=== PATIENT | male | born 1945 | race Caucasian/White ===

== ENCOUNTER 2016-07-26 18:51 | Inpatient (IN) | payer BC, OTHER ==
[~2016-07-26] VITALS: Ht 170.2 cm; Wt 103.0 kg
[~2016-07-26 18:51] MED LIST: ASPCH81X PO; MULT-506 PO
[2016-07-26 20:17] LABS: BUN/CREATININE RATIO 13.2 (10-20); CALCIUM 8.9 mg/dl (8.5-10.1); CREATININE 1.1 mg/dl (0.60-1.40); POTASSIUM 3.8 mmol/L (3.5-5.1)
[2016-07-26 20:23] LABS: URINE APPEARANCE CLEAR (CLEAR); URINE BILIRUBIN NEG (NEG); URINE COLOR YELLOW; URINE NITRITE NEG (NEG); URINE SPECIFIC GRAVITY 1.025 (1.000-1.030); UROBILINOGEN NEG (NEG); ZZUR CULT IF INDIC CLEAN CATCH NO
[2016-07-26 20:29] LABS: MANUAL MICROSCOPIC REQUIRED? NO; REVIEW REQ? NO
[2016-07-26 20:29] LABS: HEMATOCRIT 40.5 % (42-52); MEAN CELL VOLUME 90.4 fL (80-100); MEAN CORPUSCULAR HEMOGLOBIN 31.9 pg (25-34); MEAN CORPUSCULAR HGB CONC 35.3 g/dl (32-36); MEAN PLATELET VOLUME 9.6 fL (7.4-10.4); PLATELET COUNT 202 K/uL (130-400); RED BLOOD COUNT 4.48 M/uL (4.7-6.1); WHITE BLOOD COUNT 2.52 K/uL (4.8-10.8)
[2016-07-26] MEDS ORDERED: OPTIRAY 320 IV PRN (20:30)
[2016-07-26 20:36] LABS: BASO ABS # 0.13 K/uL (0-0.2); BASOPHIL % 5.2 % (0-2); COMPLETE YES; DOHLE BODIES 2+; HYPOSEGMENTED POLYS 1+; LYMPH ABS # 0.39 K/uL (1.2-3.4); LYMPHOCYTE % 15.5 %; META ABS # 0.11 K/uL (0-0); METAMYELOCYTE % 4.3 %; NEUTROPHILS % 43.1 %; VARIANT LYM ABS # 0.33 K/uL; VARIANT LYMPHOCYTE % 12.9 %
[2016-07-26] MEDS ORDERED: PAIN MEDICATION PO (20:51)
--- NOTE | 2016-07-26 21:01 | DIAGNOSTIC IMAGING REPORT ---
CT pelvis PELVIS W/IV CONT ONLY (CT) CLINICAL HISTORY: Rectal pain pain TECHNIQUE: Transaxial acquisition. Multi axial reformatted images. COMPARISON STUDY: None FINDINGS: Nonspecific nonobstructive bowel pattern. Normal appendix. Subtle increase in density of the mid mesenteric considered nonspecific. Scattered colonic diverticuli with no evidence for diverticulitis. Bladder is midline. No significant pelvic or inguinal adenopathy. Small right perianal collection measuring 2.0 x 1.6 cm. This is at/or immediately adjacent to the angle verge. Remainder the study is unremarkable. Mild degenerative change of the osseous structures throughout. Thinning of the left lateral abdominal wall most likely on anatomic variation basis. IMPRESSION: 1. Small right perianal collection measuring 2.0 x 1.6 cm. 2. This is at intermediately proximal to the anal verge. 3. Remainder the pelvis shows no additional significant abnormality. Electronically signed by: Edil Green M.D. 07/26/2016 8:59 PM Dictated Date/Time: 07/26/2016 8:55 PM
[2016-07-26] MEDS ORDERED: VANCOMYCIN INJ 1,500 MG in SODIUM CHLORIDE 0.9% 500ML 500 ML IV STA (22:24)
[2016-07-26] MEDS ORDERED: PIPERACILLIN/TAZOBACTAM 4.5 GM/100ML D5W IV STA (22:25)
[2016-07-26] MEDS ORDERED: ONDANSETRON INJ 2 MG/ML 2 ML VIAL IV STA (22:28)
[2016-07-26] MEDS ORDERED: HYDROmorphone INJ 0.5 MG/0.5 ML SYR IV STA (22:28)
[2016-07-26] MEDS ORDERED: SODIUM CHLORIDE 0.9% 1000ML 1,000 ML IV STA (23:25)
[2016-07-26] MEDS ORDERED: HYDROmorphone INJ 1 MG/ML SYR IV PRN (23:30)
[2016-07-26] MEDS ORDERED: ACETAMINOPHEN 325 MG TAB PO PRN (23:45)
[2016-07-26] MEDS ORDERED: ONDANSETRON INJ 2 MG/ML 2 ML VIAL IV PRN (23:45)
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
[2016-07-27] VITALS (8 sets, daily range): BP systolic 97–148; BP diastolic 56–77; PULSE 74–111; TEMP 36.6–36.9; O2SAT 92–95; Ht 170.2 cm; Wt 103.0 kg
[2016-07-27] MEDS: D5W AND LACTATED RINGERS 1,000 ML IV SCH ×2 (01:16→08:22)
--- NOTE | 2016-07-27 02:32 | EMERGENCY ROOM VISIT NOTE ---
History Report prepared by Doreen: Isac Leong Under the Supervision of: Dr. Joe Topete M.D. First contact with patient: 19:05 Chief Complaint: RECTAL PAIN Stated Complaint: HEMORROID ISSUES Nursing Triage Summary: see triage note History of Present Illness The patient is a 71 year old male who presents to the Emergency Room with complaints of persistent rectal pain that started 3 days ago. The patient notes that he thinks he has hemorrhoids. He notes that the discomfort is worse on the right side. He has not had a bowel movement in 3 days. The patient recalls one episode of having a bowel movement and then noticing significant bleeding with wiping. He tried an ointment and suppository without any relief of his symptoms. Pt denies LOC, headache, fevers, chills, diaphoresis, visual changes, neck pain, chest pain, breathing difficulties, nausea, vomiting, abdominal pain , back pain, urinary symptoms, numbness, weakness, lymphadenopathy, rash, or other complaints. Source of History: patient Onset: 3 days ago Position: other (rectal) Timing: other (persistent) Associated Symptoms: + hematochezia (with wiping) Note: Other associated symptoms: constipation Review of Systems See HPI for pertinent positives and negatives. A total of ten systems were reviewed and were otherwise negative. Past Medical & Surgical Medical Problems: (1) Kidney stone (2) Perirectal abscess (3) Vision loss Surgical Problems: (1) H/O nephrolithotomy with removal of calculi Family History Cancer Heart disease Kidney stone Social History Smoking Status: Former Smoker Drug Use: none Marital Status: Housing Status: lives alone Occupation Status: retired Current/Historical Medications Miscellaneous Medications [Pain medication], Unknown Dose PO Allergies Coded Allergies: No Known Allergies (Verified , 07/26/16) Physical Exam Vital Signs Date Time Temp Pulse Resp B/P Pulse Ox O2 Delivery O2 Flow Rate FiO2 07/26/16 23:36 99 18 118/77 95 Room Air 07/26/16 23:12 101 07/26/16 22:12 98 18 151/93 98 Room Air 07/26/16 20:50 102 18 122/73 97 Room Air 07/26/16 19:50 105 07/26/16 19:00 36.8 117 18 149/72 96 Room Air Physical Exam GENERAL: Awake, alert, well-appearing, in no distress HENT: Normocephalic, atraumatic. Oropharynx unremarkable. EYES: Normal conjunctiva. Sclera non-icteric. NECK: Supple. No nuchal rigidity. FROM. No JVD. RESPIRATORY: Clear to auscultation. CARDIAC: Regular rate, normal rhythm. Extremities warm and well perfused. Pulses equal. ABDOMEN: Soft, non-distended. No tenderness to palpation. No rebound or guarding. No masses. RECTAL: Erythema and swelling. Tenderness to right perirectal area. There was moderate edema present. External hemorrhoids without active bleeding. MUSCULOSKELETAL: Chest examination reveals no tenderness. The back is symmetrical on inspection without obvious abnormality. There is no CVA tenderness to palpation. No joint edema. LOWER EXTREMITIES: Calves are equal size bilaterally and non-tender. No edema. No discoloration. NEURO: Normal sensorium. No sensory or motor deficits noted. SKIN: No rash or jaundice noted. Medical Decision & Procedures ER Provider Diagnostic Interpretation: Other radiology results as stated below per my review and radiologist interpretation CT pelvis PELVIS W/IV CONT ONLY (CT) CLINICAL HISTORY: Rectal pain pain TECHNIQUE: Transaxial acquisition. Multi axial reformatted images. COMPARISON STUDY: None FINDINGS: Nonspecific nonobstructive bowel pattern. Normal appendix. Subtle increase in density of the mid mesenteric considered nonspecific. Scattered colonic diverticuli with no evidence for diverticulitis. Bladder is midline. No significant pelvic or inguinal adenopathy. Small right perianal collection measuring 2.0 x 1.6 cm. This is at/or immediately adjacent to the angle verge. Remainder the study is unremarkable. Mild degenerative change of the osseous structures throughout. Thinning of the left lateral abdominal wall most likely on anatomic variation basis. IMPRESSION: 1. Small right perianal collection measuring 2.0 x 1.6 cm. 2. This is at intermediately proximal to the anal verge. 3. Remainder the pelvis shows no additional significant abnormality. Electronically signed by: Edil Green M.D. 07/26/2016 8:59 PM Dictated Date/Time: 07/26/2016 8:55 PM Laboratory Results 07/26/16 19:47 Red Blood Count 4.48, Mean Corpuscular Volume 90.4, Mean Corpuscular Hemoglobin 31.9, Mean Corpuscular Hemoglobin Concent 35.3, Mean Platelet Volume 9.6 07/26/16 19:47 Test 07/26/16 19:45 07/26/16 19:47 Urine Color YELLOW Urine Appearance CLEAR (CLEAR) Urine pH 5.0 (4.5-7.5) Urine Specific [place] 1.025 (1.000-1.030) Urine Protein NEG (NEG) Urine Glucose (UA) NEG (NEG) Urine Ketones 2+ (NEG) Urine Occult Blood 1+ (NEG) Urine Nitrite NEG (NEG) Urine Bilirubin NEG (NEG) Urine Urobilinogen NEG (NEG) Urine Leukocyte Esterase NEG (NEG) Urine WBC (Auto) 1-5 /hpf (0-5) Urine RBC (Auto) 0-4 /hpf (0-4) Urine Hyaline Casts (Auto) 1-5 /lpf (0-5) Urine Epithelial Cells (Auto) 10-20 /lpf (0-5) Urine Bacteria (Auto) NEG (NEG) White Blood Count 2.52 K/uL (4.8-10.8) Red Blood Count 4.48 M/uL (4.7-6.1) Hemoglobin 14.3 g/dL (14.0-18.0) Hematocrit 40.5 % (42-52) Mean Corpuscular Volume 90.4 fL (80-100) Mean Corpuscular Hemoglobin 31.9 pg (25-34) Mean Corpuscular Hemoglobin Concent 35.3 g/dl (32-36) Platelet Count 202 K/uL (130-400) Mean Platelet Volume 9.6 fL (7.4-10.4) RDW Standard Deviation 43.6 fL (36.4-46.3) RDW Coefficient of Variation 13.1 % (11.5-14.5) Neutrophils % (Manual) 43.1 % Lymphocytes % (Manual) 15.5 % Variant Lymphocytes % (manual) 12.9 % Monocytes % (Manual) 19.0 % Basophils % (Manual) 5.2 % (0-2) Metamyelocytes % 4.3 % Neutrophils # (Manual) 1.09 K/uL (1.4-6.5) Total Absolute Neutrophils 1.09 K/uL (1.4-6.5) Lymphocytes # (Manual) 0.39 K/uL (1.2-3.4) Absolute Variant Lymphocytes 0.33 K/uL Total Absolute Lymphocytes 0.72 K/uL (1.2-3.4) Monocytes # (Manual) 0.48 K/uL (0.11-0.59) Basophils # (Manual) 0.13 K/uL (0-0.2) Metamyelocytes # 0.11 K/uL (0-0) Hyposegmented Neutrophils 1+ Dohle Bodies 2+ Anion Gap 11.0 mmol/L (3-11) Est Creatinine Clear Calc Drug Dose 70.5 ml/min Estimated GFR () 77.9 Estimated GFR (Non- 67.2 BUN/Creatinine Ratio 13.2 (10-20) Calcium Level 8.9 mg/dl (8.5-10.1) Total Bilirubin 0.6 mg/dl (0.2-1) Direct Bilirubin 0.2 mg/dl (0-0.2) Aspartate Amino Transf (AST/SGOT) 19 U/L (15-37) Alanine Aminotransferase (ALT/SGPT) 24 U/L (12-78) Alkaline Phosphatase 73 U/L (45-117) Total Protein 7.6 gm/dl (6.4-8.2) Albumin 4.0 gm/dl (3.4-5.0) Lipase 97 U/L (73-393) Laboratory results reviewed by me Medications Administered Medications (Trade) Dose Ordered Sig/Arnav Route Start Time Stop Time Status Last Admin Dose Admin Vancomycin HCl/ Sodium Chloride (Vancomycin Inj/ Nss 500ml) 530 ml @ 200 mls/hr ONE STAT IV 07/26/16 22:24 07/27/16 01:02 DC 07/26/16 23:18 200 MLS/HR Piperacillin Sod/ Tazobactam Sod (Zosyn Iv) 4.5 gm NOW STAT IV 07/26/16 22:25 07/26/16 22:26 DC 07/26/16 22:36 4.5 GM Ondansetron HCl (Zofran Inj) 4 mg NOW STAT IV 07/26/16 22:28 07/26/16 22:30 DC 07/26/16 22:35 4 MG Hydromorphone HCl (Dilaudid Inj) 0.5 mg NOW STAT IV 07/26/16 22:28 07/26/16 22:30 DC 07/26/16 22:35 0.5 MG Hydromorphone HCl (Dilaudid Inj) 1 mg Q15M PRN IV 07/26/16 23:30 07/27/16 01:02 DC 07/26/16 23:36 1 MG ED Course 1946: The patient was evaluated in room C5. A complete history and physical exam was performed. 2030: Ordered Ioversol 100 ml IV/interaction checking. 2220: At this time, I discussed the patient's case with Dr. Molina - General Surgery [facility] and he recommended IV Antibiotics. 2224: ORdered Vancomycin HCl 1500 mg/ NSS 530 ml @ 200 mls/hr IV. 2225: Ordered Zosyn Iv 2.5 gm IV. 2228: Ordered Dilaudid Inj 0.5 mg IV, Zofran Inj 4 mg IV. 2233: At this time, I discussed the patient's case with Dr. Vincent - Hospitalist [facility] and he agreed to accept the patient for further evaluation. 2325: Ordered NSS 1000 ml @ 125 mls/hr IV. 2330: Ordered Dilaudid Inj 1 mg IV/pain. Medical Decision Triage Nursing notes reviewed. The patient's presentation and history were concerning for rectal pain and bleeding. Etiologies such as fissure, hemorrhoids, rectal abscess, perirectal abscess, diverticulosis, AVM, coagulopathy, colitis, inflammatory bowel disease, malignancy,Danielle-Wayne tear, esophagitis, peptic ulcer disease, variceal bleed , gastritis, as well as others were entertained. The patient was evaluated. On examination he had significant induration and swelling in the right rashad-anal area and right gluteal cleft. He had a benign abdomen. The patient had blood work obtained. His CBC revealed a mild leukopenia and mild neutropenia. Chem panel was unremarkable. The patient underwent CT imaging and this was concerning for perianal/rectal abscess. The patient was hydrated. He was given IV Zofran and Dilaudid for pain control. Consultation was made with general surgery who recommended IV antibiotics and medical admission. He received IV vancomycin and IV Zosyn. Consultation was made with internal medicine. The patient was evaluated in the Emergency Room for further management. The chart was completed utilizing [employer] voice recognition software. Grammatical errors, random word insertions, pronoun errors, and incomplete sentences are an occasional consequence of this system due to software limitations, ambient noise, and hardware issues. Any formal questions or concerns about the content, text, or information contained within the body of this dictation should be directly addressed to the physician for clarification. Consults Time Called: 2214 Consulting Physician: Dr. Molina - General Surgery [place] Returned Call: [phone] At this time, I discussed the patient's case with Dr. Molina and he recommended IV Antibiotics. Additional Consults: Time Called: 2226 Consulted Physician: Dr. Vincent - Hospitalist [facility] Returned Call: [phone] Additional Comments: At this time, I discussed the patient's case with Dr. Vincent and he agreed to accept the patient for further evaluation. Impression Primary Impression: Perirectal abscess Additional Impression: Neutropenia Scribe Attestation The scribe's documentation has been prepared under my direction and personally reviewed by me in its entirety. I confirm that the note above accurately reflects all work, treatment, procedures, and medical decision making performed by me. Departure Information Dispostion Being Evaluated By Hospitalist Philip Hou MD (PCP) Problem Qualifiers
[2016-07-27] MEDS ORDERED: CEFAZOLIN IV 2,000 MG/60 ML D5W IV SCH (06:00)
[2016-07-27] MEDS ORDERED: VANCOMYCIN CONSULT ACTIVE PRN (08:30)
[2016-07-27] MEDS ORDERED: PIPERACILL/TAZOBAC CONSULT ACTIVE PRN (08:30)
[2016-07-27] MEDS ORDERED: VANCOMYCIN INJ 1,500 MG in SODIUM CHLORIDE 0.9% 500ML 500 ML IV SCH (09:00)
[2016-07-27] MEDS: PIPERACILL/TAZOBAC IV 4.5 GM in DEXTROSE 5% 100ML 100 ML IV SCH ×2 (09:01→15:37)
[2016-07-27] MEDS ORDERED: BISACODYL 10 MG SUPP ONE (09:46)
--- NOTE | 2016-07-27 10:00 | Pharmacy Progress Note ---
Pharmacy Antibiotic Consult Date of Service: Jul 27, 2016. Pharmacy Dosing Scope Pharmacy is consulted to initiate Vancomycin and Zosyn IV dosing therapy, order appropriate labs and adjust drug dose/frequency. Subjective The patient is a 71 year old male admitted on Jul 26, 2016 at 23:41 admitted for perirectal abscess. He has hx of lymphoma on chemotherapy (last about a month ago). Dr. Vincent consulted pharmacy for broad spectrum antibiotic coverage consisting of Vancomycin and Zosyn. Objective Height (Feet): 5 Height (Inches): 7.00 Weight (Kilograms): 103.000 Lab Results (24hrs): Laboratory Tests Test 07/26/16 19:47 07/27/16 08:55 BUN/Creatinine Ratio 13.2 Blood Urea Nitrogen 15 mg/dl Creatinine 1.10 mg/dl 1.00 mg/dl White Blood Count 2.52 K/uL Red Blood Count 4.48 M/uL Hemoglobin 14.3 g/dL Hematocrit 40.5 % Mean Corpuscular Volume 90.4 fL Mean Corpuscular Hemoglobin 31.9 pg Mean Corpuscular Hemoglobin Concent 35.3 g/dl Platelet Count 202 K/uL Mean Platelet Volume 9.6 fL Recent Pertinent Medications Initial doses of both Vancomycin and Zosyn in E.D Item Value Date Time Piperacillin Sod/ 120 ml @ 30 mls/hr 07/27/16 0845 Tazobactam Sod Q8@0000,0800,1600/IV 07/27/16 0901 4.5 gm/Dextrose Assessment & Plan Loading dose: Vancomycin 1500mg (~15mg/kg) IV X 1 dose then I gave patient another 1500mg dose around 0900. Going forward I will give patient Vancomycin 1350mg (~13mg/kg) every 12 hours. Given his bariatric stature I would predict him to accumulate the Vancomycin. I estimated patients half life at around 10 hours. I will check a trough level prior to 1000 dose on 07/29/16. Goal trough level estimate: between 15-20 mcg/mL. Pharmacy will continue to follow and will adjust dose/frequency as necessary. Thank you
--- NOTE | 2016-07-27 10:12 | History and Physical ---
History & Physical Date & Time of Service: Jul 27, 2016 at 10:02 Chief Complaint: Perirectal Abscess Primary Care Physician: Philip Chahal MD History of Present Illness Source: patient, family 71 YO male followed by Dr. Chahal for Internal Medicine and Dr. Hernandez for Hematology / Oncology. History of lymphoma. Last chemo about a month ago. Presented to ED with severe rectal pain. Symptoms started about 10 days ago and have progressively worsened. Pain worse when sitting. No significant worsening with bowel movements. Minimal amount of blood on toilet paper. No associated fever, nausea, vomiting. Tried oxycodone without benefit. now pt is still have rectal pain, pt denies fever, last BM 5 days ago. . 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 Surgical Problems: (1) H/O nephrolithotomy with removal of calculi Status: Resolved Family History Cancer Heart disease Kidney stone Social History Smoking Status: Former Smoker Alcohol Use: occasionally Drug Use: none Marital Status: Housing status: lives alone Occupational Status: retired Multi-Drug Resistant Organisms History of MDRO: No Allergies Coded Allergies: No Known Allergies (Verified , 07/26/16) Home Medications Miscellaneous Medications [Pain medication], Unknown Dose PO Review of Systems Constitutional: No chills, No fatigue, No fever, No problem reported, No sweats , No weakness, No weight loss Eyes: No diplopia, No discharge, No eye pain, No problem reported, No redness, No worsening of vision ENT: No dental problems, No hearing loss, No nasal symptoms, No problem reported, No sore throat, No tinnitus, No trouble swallowing, No unusual epistaxis Respiratory: No cough, No dyspnea at rest, No dyspnea on exertion, No hemoptysis, No problem reported, No shortness of breath, No sputum, No wheezing Cardiovascular: No PND, No chest pain, No claudication, No edema, No orthopnea , No palpitations, No problem reported Abdomen: No GI bleeding, No constipation, No diarrhea, No nausea, No pain, No problem reported, No vomiting Genitourinary - Male: No dysuria, No hematuria, No impotence, No lesions, No penile discharge, No problem reported, No urinary frequency, No urinary hesitancy, No urinary incontinence, No urinary retention, No urinary urgency Neurologic: No balance problems, No memory loss, No numbness/tingling, No paralysis, No problem reported, No vertigo, No weakness Endocrine: No excessive thirst, No excessive urination, No fatigue, No problem reported Hematologic / Lymphatic: + swollen lymph nodes Physical Exam Vital Signs Date Time Temp Pulse Resp B/P Pulse Ox O2 Delivery O2 Flow Rate FiO2 07/27/16 07:45 Room Air 07/27/16 07:31 36.7 106 18 97/64 92 Room Air 07/27/16 01:20 104 07/27/16 00:45 Room Air 07/27/16 00:45 36.8 111 18 127/75 92 Room Air 07/26/16 23:36 99 18 118/77 95 Room Air 07/26/16 23:12 101 07/26/16 22:12 98 18 151/93 98 Room Air 07/26/16 20:50 102 18 122/73 97 Room Air 07/26/16 19:50 105 07/26/16 19:00 36.8 117 18 149/72 96 Room Air General Appearance: WD/WN, no apparent distress Head: normocephalic, atraumatic Eyes: EOMI, sclerae normal, + pertinent finding (s/p surgical changes right iris) ENT: hearing grossly normal, pharynx normal Neck: supple, no adenopathy, thyroid normal, no JVD, trachea midline Respiratory/Chest: lungs clear, no respiratory distress, no accessory muscle use Cardiovascular: regular rate, rhythm, no edema, no gallop, no JVD, no murmur Abdomen/GI: normal bowel sounds, non tender, soft, no organomegaly, + pertinent finding (hemorrhoids; right perirectal tenderness) Extremities/Musculoskelatal: normal inspection, no calf tenderness Neurologic/Psych: spider assembler II-XII nml as tested, no motor/sensory deficits (grossly intact), alert, normal mood/affect, oriented x 3 Skin: normal color, warm/dry Lymphatic: no adenopathy rectal exam- right perirectal abscess, size 3x3cm, redness, tenderness, external hemorrhoid, some small drainage, pus, possible fistula, Diagnostics Laboratory Results Results Past 24 Hours Test 07/26/16 19:45 07/26/16 19:47 07/27/16 08:55 Range/Units Urine Color YELLOW Urine Appearance CLEAR CLEAR Urine pH 5.0 4.5-7.5 Urine Specific [place] 1.025 1.000-1.030 Urine Protein NEG NEG Urine Glucose (UA) NEG NEG Urine Ketones 2+ NEG Urine Occult Blood 1+ NEG Urine Nitrite NEG NEG Urine Bilirubin NEG NEG Urine Urobilinogen NEG NEG Urine Leukocyte Esterase NEG NEG Urine WBC (Auto) 1-5 0-5 /hpf Urine RBC (Auto) 0-4 0-4 /hpf Urine Hyaline Casts (Auto) 1-5 0-5 /lpf Urine Epithelial Cells (Auto) 10-20 0-5 /lpf Urine Bacteria (Auto) NEG NEG White Blood Count 2.52 4.8-10.8 K/uL Red Blood Count 4.48 4.7-6.1 M/uL Hemoglobin 14.3 14.0-18.0 g/dL Hematocrit 40.5 42-52 % Mean Corpuscular Volume 90.4 80-100 fL Mean Corpuscular Hemoglobin 31.9 25-34 pg Mean Corpuscular Hemoglobin Concent 35.3 32-36 g/dl Platelet Count 202 130-400 K/uL Mean Platelet Volume 9.6 7.4-10.4 fL RDW Standard Deviation 43.6 36.4-46.3 fL RDW Coefficient of Variation 13.1 11.5-14.5 % Neutrophils % (Manual) 43.1 % Lymphocytes % (Manual) 15.5 % Variant Lymphocytes % (manual) 12.9 % Monocytes % (Manual) 19.0 % Basophils % (Manual) 5.2 0-2 % Metamyelocytes % 4.3 % Neutrophils # (Manual) 1.09 1.4-6.5 K/uL Total Absolute Neutrophils 1.09 1.4-6.5 K/uL Lymphocytes # (Manual) 0.39 1.2-3.4 K/uL Absolute Variant Lymphocytes 0.33 K/uL Total Absolute Lymphocytes 0.72 1.2-3.4 K/uL Monocytes # (Manual) 0.48 0.11-0.59 K/uL Basophils # (Manual) 0.13 0-0.2 K/uL Metamyelocytes # 0.11 0-0 K/uL Hyposegmented Neutrophils 1+ Dohle Bodies 2+ Sodium Level 139 136-145 mmol/L Potassium Level 3.8 3.5-5.1 mmol/L Chloride Level 103 98-107 mmol/L Carbon Dioxide Level 25 21-32 mmol/L Anion Gap 11.0 3-11 mmol/L Blood Urea Nitrogen 15 7-18 mg/dl Creatinine 1.10 1.00 0.60-1.40 mg/dl Est Creatinine Clear Calc Drug Dose 70.5 77.5 ml/min Estimated GFR () 77.9 87.4 Estimated GFR (Non- 67.2 75.4 BUN/Creatinine Ratio 13.2 10-20 Random Glucose 99 70-99 mg/dl Calcium Level 8.9 8.5-10.1 mg/dl Total Bilirubin 0.6 0.2-1 mg/dl Direct Bilirubin 0.2 0-0.2 mg/dl Aspartate Amino Transf (AST/SGOT) 19 15-37 U/L Alanine Aminotransferase (ALT/SGPT) 24 12-78 U/L Alkaline Phosphatase 73 45-117 U/L Total Protein 7.6 6.4-8.2 gm/dl Albumin 4.0 3.4-5.0 gm/dl Lipase 97 73-393 U/L Diagnostic Radiology CT scan-IMPRESSION: 1. Small right perianal collection measuring 2.0 x 1.6 cm. 2. This is at intermediately proximal to the anal verge. 3. Remainder the pelvis shows no additional significant abnormality. Impression Assessment and Plan IMP: perirectal abscess Plan: I recommend to do I/D perirectal abscess D/W benefits, risks and alternatives of the procedure, the risks- infection, bleeding, sepsis, fistula, AK, DVT, urine retention, pt understood, he agrees with [facility] plan, I answered all questions, pre-op EKG ASA Classification: ASA Class II Level of Care Med/Surg Advanced Directives Existing Advance Directive: No Existing Living Will: No Existing Power of Vamp Wetter: No VTE Prophylaxis VTE Risk Assessment Done? Y/N: Yes Risk Level: Moderate Given or contraindicated: SCD's Note Total Time: Critical Care 30 - 74 minutes
[2016-07-27] MEDS ORDERED: PHENYLEPHRINE 100MCG/ML 5ML SYR IV PRN (10:15)
[2016-07-27] MEDS ORDERED: HYDROmorphone INJ 2 MG/ML SYR/VIAL IV PRN (10:15)
[2016-07-27] MEDS ORDERED: ATROPINE SULFATE 0.1 MG/ML 5ML SYR IV PRN (10:15)
[2016-07-27] MEDS ORDERED: FLUMAZENIL 0.1 MG/1 ML 10 ML VIAL IV PRN (10:15)
[2016-07-27] MEDS ORDERED: MEPERIDINE HCL 25 MG/ML CARP IV PRN (10:15)
[2016-07-27] MEDS ORDERED: FENTANYL CITRATE INJ 50 MCG/1 ML 2 ML VIAL IV PRN (10:15)
[2016-07-27] MEDS ORDERED: NALOXONE HCL 0.4 MG/1 ML VIAL/CARP IV PRN (10:15)
[2016-07-27] MEDS ORDERED: EpHEDrine SULFATE INJ 50 MG/ML AMP IV PRN (10:15)
[2016-07-27] MEDS ORDERED: ONDANSETRON INJ 2 MG/ML 2 ML VIAL IV PRN (10:15)
[2016-07-27] MEDS ORDERED: LABETALOL HCL IV 5 MG/ML 20ML IV PRN (10:15)
[2016-07-27] MEDS ORDERED: LIDOCAINE HCL 2% 2 ML VIAL (20MG/ML) ONE (10:30)
[2016-07-27] MEDS ORDERED: MIDAZOLAM HCL 1 MG/ML 2ML VIAL ONE ×2 (10:30→10:31)
[2016-07-27] MEDS ORDERED: PROPOFOL IV EMULSION 10 MG/ML 20 ML VIAL IV ONE (10:30)
[2016-07-27] MEDS ORDERED: FENTANYL CITRATE INJ 50 MCG/1 ML 2 ML VIAL ONE (10:30)
[2016-07-27] MEDS ORDERED: KETAMINE HCL INJ 50 MG/ML 10 ML VIAL ONE (10:31)
[2016-07-27] MEDS ORDERED: CEFAZOLIN SOD 1 GM VIAL ONE (11:17)
--- NOTE | 2016-07-27 11:50 | [facility] Post Operative Brief Note ---
Immediate Operative Summary Operative Date Jul 27, 2016. Pre-Operative Diagnosis perirectal abscess Post-Operative Diagnosis perirectal abscess and thrombotic external hemorrhoid Procedure(s) Performed I/D perirectal abscess and incision drainage thromobotic rxternal hemorrhoid Surgeon Curtis Owen Geometry Tutor Surgeon(s) surgical services director Estimated Blood Loss 5 ml Findings perirectal abscess and throbotic external hemorrhoid at 7-9 oclock Fluids (cc crystalloids) 300ml Specimens wound culture Drains pen-zarina Anesthesia sedation + local Complication(s) None Disposition Recovery Room / PACU
[2016-07-27] MEDS ORDERED: MIX: 0.5% BUPIVICAINE 20ML/1% LIDO 20ML INJ ONE (11:57)
[2016-07-27] MEDS ORDERED: BACITRACIN 500 UNIT TOP ONE (11:58)
--- NOTE | 2016-07-27 12:06 | Anesthesiology Progress Note ---
Anesthesia Post Op Note Date & Time Jul 27, 2016 at 12:07 Vital Signs Pain Intensity: 1 Vital Signs Past 12 Hours Date Time Temp Pulse Resp B/P Pulse Ox O2 Delivery O2 Flow Rate FiO2 07/27/16 11:55 36.1 77 16 116/73 95 Mask 07/27/16 11:45 73 16 115/69 99 Mask 10 07/27/16 11:37 36 76 16 114/72 99 Mask 10 07/27/16 07:45 Room Air 07/27/16 07:31 36.7 106 18 97/64 92 Room Air 07/27/16 01:20 104 07/27/16 00:45 Room Air 07/27/16 00:45 36.8 111 18 127/75 92 Room Air Notes Mental Status: alert / awake / arousable, participated in evaluation Pt Amnestic to Procedure: Yes Nausea / Vomiting: adequately controlled Pain: adequately controlled Airway Patency, RR, SpO2: stable & adequate BP & HR: stable & adequate Hydration State: stable & adequate Anesthetic Complications: no major complications apparent
--- NOTE | 2016-07-27 12:29 | OPERATIVE REPORT ---
DATE OF OPERATION: 07/27/2016 PREOPERATIVE DIAGNOSIS: Perirectal abscess. POSTOPERATIVE DIAGNOSIS: Perirectal abscess with thrombosed external hemorrhoid. PROCEDURE: I\T\D perirectal abscess and incision and drainage thrombosed external hemorrhoid. SURGEON: Dr. Curtis Freedman. ANESTHESIA: Conscious sedation plus local. FINDINGS: Perirectal abscess with thrombosed external hemorrhoid. COMPLICATIONS: None. ESTIMATED BLOOD LOSS: About 5 mL. IV FLUIDS: 300 mL. INDICATIONS FOR THE PROCEDURE: This is a 71-year-old gentleman who was admitted to hospital for 10 days history of rectal pain. The patient was diagnosed with perirectal abscess by the CT scan. Did history and physical exam and decided to do I\T\D of perirectal abscess. I did talk to the patient about the benefit and risk, alternate procedure. I indicated the risks may include but not limited such as bleeding, infection, sepsis, fistula, myocardial infarction, DVT, even . The patient understands. He signed informed consent and I answered all questions. DETAILS OF PROCEDURE: We brought the patient to the OR and put the patient in lithotomy position and the patient received 2 grams Ancef IV for prophylactic antibiotic. The patient received SCD on bilateral legs to prevent DVT. The patient received conscious sedation by anesthesiology. Then the patient's rectal area was properly prepped and draped in routine sterile fashion. After time out, I injected the local anesthesia by using 1% lidocaine mixed with 0.5% Marcaine around rectal area. Then I started to do the rectal exam and found the patient had abscess on the right side perirectal area. Tenderness and redness. Also the patient had thrombosed external hemorrhoid. I decided made the incision on the abscess. There was some pus coming out. We did send culture. Also, we made an opening on the thrombosed external hemorrhoid and found the patient has a blood clot inside the thrombosed hemorrhoid. I did remove all the blood clot and hemostasis obtained. Then we put a dressing on. Also, passed 1 Pa drain through to the incision in order to drain the incision better. Again, hemostasis obtained. Then we put the dressing on. The patient tolerated the procedure well. After procedure, I did talk to the patient's family member. They understand. The patient transferred to recovery room in stable condition. I attest to the content of the Intraoperative Record and any orders documented therein. Any exceptions are noted below. MTDD
[2016-07-27] MEDS: D5W AND 1/2NSS + 20MEQ KCL 1,000 ML IV SCH (13:08)
[2016-07-27] MEDS: HYDROmorphone INJ 1 MG/ML SYR IV PRN (15:42)
--- NOTE | 2016-07-27 17:47 | Progress Note ---
Internal Med Progress Note Date of Service: Jul 27, 2016. Provider Documentation: SUBJECTIVE: Patient is lying in his bed and recently came back after I & D. Intermittently increased pain. No other new change or complaint. OBJECTIVE: Vital Signs-as noted below Examination: General Appearance: WD/WN, In no apparent distress Head: normocephalic, atraumatic Eyes: EOMI, sclerae normal,s/p surgical changes right iris. ENT: hearing grossly normal, pharynx normal Neck: supple, no adenopathy, thyroid normal, no JVD, trachea midline Respiratory/Chest: lungs clear, no respiratory distress, no accessory muscle use Cardiovascular: regular rate, rhythm, no edema, no gallop, no JVD, no murmur Abdomen/GI: normal bowel sounds, non tender, soft, no organomegaly, Caitlin- rectal area is dressed. Extremities/Musculoskeletal: normal inspection, no calf tenderness Neurologic/Psych: no motor/sensory deficits (grossly intact), alert, normal mood/affect, oriented x 3 Skin: normal color, warm/dry Lymphatic: no adenopathy Lab data as noted below. ASSESSMENT & PLAN: Caitlin-rectal Abscess: Had I & D done earlier today. has been clinically stable. -Continue Vancomycin + Zosyn started in ED. -Thanks for input and I & D by general Surgery History Lymphoma: Stable. VTE Prophylaxis: SCD's. Ambulate. Code Status: FULL CODE. Disposition: Expected discharge to home in AM once is cleared by surgery. Internal Medicine follow-up with Dr. Chahal. Hematology / Medical Oncology follow-up with Dr. Hernandez. Vital Signs: Date Time Temp Pulse Resp B/P Pulse Ox O2 Delivery O2 Flow Rate FiO2 07/27/16 15:20 36.6 84 18 148/77 94 Room Air 07/27/16 15:20 94 Room Air 07/27/16 12:13 95 Room Air 07/27/16 12:10 36.7 74 16 117/56 95 Room Air 07/27/16 11:55 36.1 77 16 116/73 95 Mask 07/27/16 11:45 73 16 115/69 99 Mask 10 07/27/16 11:37 36 76 16 114/72 99 Mask 10 07/27/16 07:45 Room Air 07/27/16 07:31 36.7 106 18 97/64 92 Room Air 07/27/16 01:20 104 07/27/16 00:45 Room Air 07/27/16 00:45 36.8 111 18 127/75 92 Room Air 07/26/16 23:36 99 18 118/77 95 Room Air 07/26/16 23:12 101 07/26/16 22:12 98 18 151/93 98 Room Air 07/26/16 20:50 102 18 122/73 97 Room Air 07/26/16 19:50 105 07/26/16 19:00 36.8 117 18 149/72 96 Room Air Lab Results: Results Past 24 Hours Test 07/26/16 19:45 07/26/16 19:47 07/27/16 08:55 Range/Units Urine Color YELLOW Urine Appearance CLEAR CLEAR Urine pH 5.0 4.5-7.5 Urine Specific [place] 1.025 1.000-1.030 Urine Protein NEG NEG Urine Glucose (UA) NEG NEG Urine Ketones 2+ NEG Urine Occult Blood 1+ NEG Urine Nitrite NEG NEG Urine Bilirubin NEG NEG Urine Urobilinogen NEG NEG Urine Leukocyte Esterase NEG NEG Urine WBC (Auto) 1-5 0-5 /hpf Urine RBC (Auto) 0-4 0-4 /hpf Urine Hyaline Casts (Auto) 1-5 0-5 /lpf Urine Epithelial Cells (Auto) 10-20 0-5 /lpf Urine Bacteria (Auto) NEG NEG White Blood Count 2.52 4.8-10.8 K/uL Red Blood Count 4.48 4.7-6.1 M/uL Hemoglobin 14.3 14.0-18.0 g/dL Hematocrit 40.5 42-52 % Mean Corpuscular Volume 90.4 80-100 fL Mean Corpuscular Hemoglobin 31.9 25-34 pg Mean Corpuscular Hemoglobin Concent 35.3 32-36 g/dl Platelet Count 202 130-400 K/uL Mean Platelet Volume 9.6 7.4-10.4 fL RDW Standard Deviation 43.6 36.4-46.3 fL RDW Coefficient of Variation 13.1 11.5-14.5 % Neutrophils % (Manual) 43.1 % Lymphocytes % (Manual) 15.5 % Variant Lymphocytes % (manual) 12.9 % Monocytes % (Manual) 19.0 % Basophils % (Manual) 5.2 0-2 % Metamyelocytes % 4.3 % Neutrophils # (Manual) 1.09 1.4-6.5 K/uL Total Absolute Neutrophils 1.09 1.4-6.5 K/uL Lymphocytes # (Manual) 0.39 1.2-3.4 K/uL Absolute Variant Lymphocytes 0.33 K/uL Total Absolute Lymphocytes 0.72 1.2-3.4 K/uL Monocytes # (Manual) 0.48 0.11-0.59 K/uL Basophils # (Manual) 0.13 0-0.2 K/uL Metamyelocytes # 0.11 0-0 K/uL Hyposegmented Neutrophils 1+ Dohle Bodies 2+ Sodium Level 139 136-145 mmol/L Potassium Level 3.8 3.5-5.1 mmol/L Chloride Level 103 98-107 mmol/L Carbon Dioxide Level 25 21-32 mmol/L Anion Gap 11.0 3-11 mmol/L Blood Urea Nitrogen 15 7-18 mg/dl Creatinine 1.10 1.00 0.60-1.40 mg/dl Est Creatinine Clear Calc Drug Dose 70.5 77.5 ml/min Estimated GFR () 77.9 87.4 Estimated GFR (Non- 67.2 75.4 BUN/Creatinine Ratio 13.2 10-20 Random Glucose 99 70-99 mg/dl Calcium Level 8.9 8.5-10.1 mg/dl Total Bilirubin 0.6 0.2-1 mg/dl Direct Bilirubin 0.2 0-0.2 mg/dl Aspartate Amino Transf (AST/SGOT) 19 15-37 U/L Alanine Aminotransferase (ALT/SGPT) 24 12-78 U/L Alkaline Phosphatase 73 45-117 U/L Total Protein 7.6 6.4-8.2 gm/dl Albumin 4.0 3.4-5.0 gm/dl Lipase 97 73-393 U/L Microbiology Results 07/27/16 Gram Stain - Final, Resulted 07/27/16 Bacterial Culture, Resulted Pending
[2016-07-27] MEDS: DOCUSATE SODIUM 100 MG CAP PO SCH (21:05)
[2016-07-27] MEDS: VANCOMYCIN INJ 1,350 MG in SODIUM CHLORIDE 0.9% 250ML 250 ML IV SCH (21:46)
[2016-07-28] MEDS: PIPERACILL/TAZOBAC IV 4.5 GM in DEXTROSE 5% 100ML 100 ML IV SCH ×3 (00:45→16:56)
[2016-07-28 03:49] VITALS: BP 113/69; PULSE 75; TEMP 36.8; O2SAT 94
[2016-07-28 06:14] LABS: BUN/CREATININE RATIO 9.8 (10-20); CALCIUM 8.2 mg/dl (8.5-10.1); CREATININE 1.1 mg/dl (0.60-1.40); POTASSIUM 3.8 mmol/L (3.5-5.1)
[2016-07-28 06:18] LABS: BASO ABS # 0.05 K/uL (0-0.2); BASOPHIL % 2.6 % (0-2); COMPLETE YES; DOHLE BODIES 2+; EOSINOPHIL % 7.7 %; HEMATOCRIT 35.4 % (42-52); HYPOSEGMENTED POLYS 1+; LYMPH ABS # 0.36 K/uL (1.2-3.4); LYMPHOCYTE % 18.8 %; MEAN CELL VOLUME 91.2 fL (80-100); MEAN PLATELET VOLUME 9.3 fL (7.4-10.4); META ABS # 0.07 K/uL (0-0); METAMYELOCYTE % 3.4 %; MYELOCYTE % 2.6 %; NEUTROPHILS % 37.5 %; PLATELET COUNT 181 K/uL (130-400); RED BLOOD COUNT 3.88 M/uL (4.7-6.1); VARIANT LYMPHOCYTE % 10.3 %; WHITE BLOOD COUNT 1.93 K/uL (4.8-10.8)
[2016-07-28] MEDS: D5W AND 1/2NSS + 20MEQ KCL 1,000 ML IV SCH (07:38)
[2016-07-28] MEDS: HYDROmorphone INJ 1 MG/ML SYR IV PRN ×3 (07:46→21:14)
--- NOTE | 2016-07-28 08:11 | Anesthesiology Progress Note ---
Anesthesia Post Op Note Date & Time Jul 28, 2016 at 08:11 Vital Signs Vital Signs Past 12 Hours Date Time Temp Pulse Resp B/P Pulse Ox O2 Delivery O2 Flow Rate FiO2 07/28/16 03:49 36.8 75 16 113/69 94 Room Air 07/28/16 00:45 Room Air 07/27/16 23:14 36.9 77 16 109/69 94 Room Air Notes Mental Status: alert / awake / arousable, participated in evaluation Pt Amnestic to Procedure: Yes Nausea / Vomiting: adequately controlled Pain: adequately controlled Airway Patency, RR, SpO2: stable & adequate BP & HR: stable & adequate Hydration State: stable & adequate Anesthetic Complications: no major complications apparent
[2016-07-28 08:30] VITALS: BP 125/75; PULSE 75; TEMP 36.6; O2SAT 93
[2016-07-28] MEDS: DOCUSATE SODIUM 100 MG CAP PO SCH ×2 (10:18→21:11)
[2016-07-28] MEDS: VANCOMYCIN INJ 1,350 MG in SODIUM CHLORIDE 0.9% 250ML 250 ML IV SCH ×2 (12:04→21:11)
--- NOTE | 2016-07-28 12:08 | Surgery Progress Note ---
Surgery Progress Note Date of Service Jul 28, 2016. Subjective Post OP Day: 1 + feeling well F/U S/P I/D perirectal abscess. pt is doing much better, less pain, the wound is dry, no fever. passed BM, Objective Vital Signs: Date Time Temp Pulse Resp B/P Pulse Ox O2 Delivery O2 Flow Rate FiO2 07/28/16 08:30 36.6 75 18 125/75 93 Room Air 07/28/16 07:37 Room Air 07/28/16 03:49 36.8 75 16 113/69 94 Room Air 07/28/16 00:45 Room Air 07/27/16 23:14 36.9 77 16 109/69 94 Room Air 07/27/16 19:20 36.8 88 18 125/76 94 Room Air 07/27/16 15:20 36.6 84 18 148/77 94 Room Air 07/27/16 15:20 94 Room Air 07/27/16 12:13 95 Room Air 07/27/16 12:10 36.7 74 16 117/56 95 Room Air General Appearance: WD/WN Head: normocephalic Neck: supple Respiratory/Chest: chest non-tender, lungs clear Cardiovascular: regular rate, rhythm, no edema, no gallop, no JVD Abdomen: normal bowel sounds, non tender, non distended Incision(s): clean, dry, intact Extremities: normal range of motion, non-tender Laboratory Results: Results Past 24 Hours Test 07/28/16 05:00 07/28/16 05:20 Range/Units Sodium Level 142 136-145 mmol/L Potassium Level 3.8 3.5-5.1 mmol/L Chloride Level 106 98-107 mmol/L Carbon Dioxide Level 26 21-32 mmol/L Anion Gap 10.0 3-11 mmol/L Blood Urea Nitrogen 11 7-18 mg/dl Creatinine 1.10 0.60-1.40 mg/dl Est Creatinine Clear Calc Drug Dose 70.5 ml/min Estimated GFR () 77.9 Estimated GFR (Non- 67.2 BUN/Creatinine Ratio 9.8 10-20 Random Glucose 157 70-99 mg/dl Calcium Level 8.2 8.5-10.1 mg/dl White Blood Count 1.93 4.8-10.8 K/uL Red Blood Count 3.88 4.7-6.1 M/uL Hemoglobin 12.4 14.0-18.0 g/dL Hematocrit 35.4 42-52 % Mean Corpuscular Volume 91.2 80-100 fL Mean Corpuscular Hemoglobin 32.0 25-34 pg Mean Corpuscular Hemoglobin Concent 35.0 32-36 g/dl Platelet Count 181 130-400 K/uL Mean Platelet Volume 9.3 7.4-10.4 fL RDW Standard Deviation 44.1 36.4-46.3 fL RDW Coefficient of Variation 13.3 11.5-14.5 % Neutrophils % (Manual) 37.5 % Lymphocytes % (Manual) 18.8 % Variant Lymphocytes % (manual) 10.3 % Monocytes % (Manual) 17.1 % Eosinophils % (Manual) 7.7 % Basophils % (Manual) 2.6 0-2 % Metamyelocytes % 3.4 % Myelocytes % 2.6 % Neutrophils # (Manual) 0.72 1.4-6.5 K/uL Total Absolute Neutrophils 0.72 1.4-6.5 K/uL Lymphocytes # (Manual) 0.36 1.2-3.4 K/uL Absolute Variant Lymphocytes 0.20 K/uL Total Absolute Lymphocytes 0.56 1.2-3.4 K/uL Monocytes # (Manual) 0.33 0.11-0.59 K/uL Eosinophils # (Manual) 0.15 0-0.5 K/uL Basophils # (Manual) 0.05 0-0.2 K/uL Metamyelocytes # 0.07 0-0 K/uL Myelocytes # 0.05 0-0 K/uL Hyposegmented Neutrophils 1+ Dohle Bodies 2+ Assessment & Plan IMP S/P I/D abscess pt is doing fine, wound culture is pending pt can be Dicharged home tomorrow, with po bactrim 800/160 one tab, po bid x 7 days, chane dressing as needed, F/U me 1 week, sign off today please call me if needed. Thanks.
--- NOTE | 2016-07-28 14:12 | Progress Note ---
Subjective Date of Service: Jul 28, 2016. 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 Review of Systems Constitutional: No chills, No fatigue, No fever, No sweats, No weakness, No weight loss Respiratory: No cough, No shortness of breath, No sputum Cardiac: No chest pain Abdomen: No GI bleeding, No constipation, No diarrhea, No nausea, No pain, No vomiting Medications Current Inpatient Medications Medications (Trade) Dose Ordered Sig/Arnav Route Start Time Stop Time Status Last Admin Dose Admin Ioversol (Optiray 320) 100 ml UD PRN IV 07/26/16 20:30 07/30/16 20:29 Acetaminophen (Tylenol Tab) 650 mg Q4H PRN PO 07/26/16 23:45 08/25/16 23:44 07/27/16 05:57 650 MG Ondansetron HCl (Zofran Inj) 4 mg Q6H PRN IV 07/26/16 23:45 08/25/16 23:44 Hydromorphone HCl 1 mg 1 mg Q3H PRN IV 07/27/16 00:30 08/10/16 00:29 07/28/16 08:22 1 MG Piperacillin Sod/ Tazobactam Sod/ Dextrose (Zosyn Iv/D5 100ml) 120 ml @ 30 mls/hr Q8@0000,0800,1600 IV 07/27/16 08:45 08/06/16 08:44 07/28/16 07:41 30 MLS/HR Vancomycin HCl (Consult) 1 ea UD PRN N/A 07/27/16 08:30 08/26/16 08:29 Piperacillin Sod/ Tazobactam Sod 1 ea 1 ea UD PRN N/A 07/27/16 08:30 08/26/16 08:29 Vancomycin HCl/ Sodium Chloride (Vancomycin Inj/ Nss 250ml) 277 ml @ 125 mls/hr Q12H IV 07/27/16 22:00 08/06/16 21:59 07/28/16 12:04 125 MLS/HR Docusate Sodium 100 mg 100 mg BID PO 07/27/16 21:00 08/26/16 20:59 07/28/16 10:18 100 MG Potassium Chloride/Dextrose/ Sod Cl (D5W And 1/2nss + 20meq KCl) 1,000 ml @ 50 mls/hr Q20H IV 07/27/16 12:15 08/26/16 12:14 07/28/16 07:38 50 MLS/HR Objective Vital Signs Date Time Temp Pulse Resp B/P Pulse Ox O2 Delivery O2 Flow Rate FiO2 07/28/16 08:30 36.6 75 18 125/75 93 Room Air 07/28/16 07:37 Room Air 07/28/16 03:49 36.8 75 16 113/69 94 Room Air 07/28/16 00:45 Room Air 07/27/16 23:14 36.9 77 16 109/69 94 Room Air 07/27/16 19:20 36.8 88 18 125/76 94 Room Air 07/27/16 15:20 36.6 84 18 148/77 94 Room Air 07/27/16 15:20 94 Room Air Physical Exam General Appearance: no apparent distress Respiratory/Chest: lungs clear, normal breath sounds, no respiratory distress, no accessory muscle use Cardiovascular: regular rate, rhythm, no edema, no murmur Abdomen: normal bowel sounds, non tender, soft Extremities: normal inspection, no pedal edema Neurologic/Psychiatric: no motor/sensory deficits, alert, normal mood/affect Laboratory Results Last 24 Hours Test 07/28/16 05:00 07/28/16 05:20 Sodium Level 142 mmol/L Potassium Level 3.8 mmol/L Chloride Level 106 mmol/L Carbon Dioxide Level 26 mmol/L Anion Gap 10.0 mmol/L Blood Urea Nitrogen 11 mg/dl Creatinine 1.10 mg/dl Est Creatinine Clear Calc Drug Dose 70.5 ml/min Estimated GFR () 77.9 Estimated GFR (Non- 67.2 BUN/Creatinine Ratio 9.8 Random Glucose 157 mg/dl Calcium Level 8.2 mg/dl White Blood Count 1.93 K/uL Red Blood Count 3.88 M/uL Hemoglobin 12.4 g/dL Hematocrit 35.4 % Mean Corpuscular Volume 91.2 fL Mean Corpuscular Hemoglobin 32.0 pg Mean Corpuscular Hemoglobin Concent 35.0 g/dl Platelet Count 181 K/uL Mean Platelet Volume 9.3 fL RDW Standard Deviation 44.1 fL RDW Coefficient of Variation 13.3 % Neutrophils % (Manual) 37.5 % Lymphocytes % (Manual) 18.8 % Variant Lymphocytes % (manual) 10.3 % Monocytes % (Manual) 17.1 % Eosinophils % (Manual) 7.7 % Basophils % (Manual) 2.6 % Metamyelocytes % 3.4 % Myelocytes % 2.6 % Neutrophils # (Manual) 0.72 K/uL Total Absolute Neutrophils 0.72 K/uL Lymphocytes # (Manual) 0.36 K/uL Absolute Variant Lymphocytes 0.20 K/uL Total Absolute Lymphocytes 0.56 K/uL Monocytes # (Manual) 0.33 K/uL Eosinophils # (Manual) 0.15 K/uL Basophils # (Manual) 0.05 K/uL Metamyelocytes # 0.07 K/uL Myelocytes # 0.05 K/uL Hyposegmented Neutrophils 1+ Dohle Bodies 2+ Assessment and Plan This is a 71 year old male with PMH of lymphoma s/p chemotherapy (last one in November) presents with perianal abscess Right Perianal Abscess appreciate general surgery input s/p I&D currently on abx. can d/c in AM with bactrim x 10 days Pain controlled Lymphoma continues to have leukopenia, neutropenia will monitor with antibiotics may need to contact hem/onc (Dr. Hernandez) prior to discharge DVT ppx SCDs FULL CODE
[2016-07-28 15:54] VITALS: BP 112/61; PULSE 74; TEMP 36.5; O2SAT 95
[2016-07-28 23:12] VITALS: BP 155/69; PULSE 78; TEMP 36.8; O2SAT 96
[2016-07-29] MEDS: PIPERACILL/TAZOBAC IV 4.5 GM in DEXTROSE 5% 100ML 100 ML IV SCH ×2 (00:27→07:26)
[2016-07-29] MEDS: D5W AND 1/2NSS + 20MEQ KCL 1,000 ML IV SCH (04:43)
[2016-07-29 06:30] LABS: DOHLE BODIES 1+; HYPOSEGMENTED POLYS 1+
[2016-07-29 06:32] LABS: BASO ABS # 0.02 K/uL (0-0.2); BASOPHIL % 0.9 % (0-2); COMPLETE YES; EOSINOPHIL % 9.6 %; HEMATOCRIT 37.1 % (42-52); MEAN CELL VOLUME 92.3 fL (80-100); MEAN CORPUSCULAR HEMOGLOBIN 31.6 pg (25-34); MEAN CORPUSCULAR HGB CONC 34.2 g/dl (32-36); MEAN PLATELET VOLUME 9.1 fL (7.4-10.4); META ABS # 0.13 K/uL (0-0); METAMYELOCYTE % 6.1 %; PLATELET COUNT 215 K/uL (130-400); RED BLOOD COUNT 4.02 M/uL (4.7-6.1); VARIANT LYM ABS # 0.34 K/uL; VARIANT LYMPHOCYTE % 15.8 %; WHITE BLOOD COUNT 2.15 K/uL (4.8-10.8)
[2016-07-29 06:41] LABS: BUN/CREATININE RATIO 8.7 (10-20); CALCIUM 8.2 mg/dl (8.5-10.1); CREATININE 1.1 mg/dl (0.60-1.40); MAGNESIUM 2.5 mg/dl (1.8-2.4); POTASSIUM 3.8 mmol/L (3.5-5.1)
[2016-07-29 07:48] VITALS: BP 110/62; PULSE 76; TEMP 36.7; O2SAT 93
[2016-07-29 08:26] VITALS: O2SAT 93
[2016-07-29] MEDS: DOCUSATE SODIUM 100 MG CAP PO SCH (08:36)
[2016-07-29] MEDS ORDERED: VANCOMYCIN TROUGH SCH ×2 (09:30→21:30)
[2016-07-29] MEDS: VANCOMYCIN INJ 1,350 MG in SODIUM CHLORIDE 0.9% 250ML 250 ML IV SCH (10:04)
--- NOTE | 2016-07-29 12:44 | Progress Note ---
Subjective Date of Service: Jul 29, 2016. 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 Review of Systems Constitutional: No chills, No fever Respiratory: No cough, No shortness of breath, No sputum Cardiac: No chest pain, No edema, No palpitations Abdomen: No constipation, No diarrhea, No nausea, No pain, No vomiting Medications Current Inpatient Medications Medications (Trade) Dose Ordered Sig/Arnav Route Start Time Stop Time Status Last Admin Dose Admin Ioversol (Optiray 320) 100 ml UD PRN IV 07/26/16 20:30 07/30/16 20:29 Acetaminophen (Tylenol Tab) 650 mg Q4H PRN PO 07/26/16 23:45 08/25/16 23:44 07/27/16 05:57 650 MG Ondansetron HCl (Zofran Inj) 4 mg Q6H PRN IV 07/26/16 23:45 08/25/16 23:44 Hydromorphone HCl 1 mg 1 mg Q3H PRN IV 07/27/16 00:30 08/10/16 00:29 07/28/16 21:14 1 MG Piperacillin Sod/ Tazobactam Sod/ Dextrose (Zosyn Iv/D5 100ml) 120 ml @ 30 mls/hr Q8@0000,0800,1600 IV 07/27/16 08:45 08/06/16 08:44 07/29/16 07:26 30 MLS/HR Vancomycin HCl (Consult) 1 ea UD PRN N/A 07/27/16 08:30 08/26/16 08:29 Piperacillin Sod/ Tazobactam Sod 1 ea 1 ea UD PRN N/A 07/27/16 08:30 08/26/16 08:29 Vancomycin HCl/ Sodium Chloride (Vancomycin Inj/ Nss 250ml) 277 ml @ 125 mls/hr Q12H IV 07/27/16 22:00 08/06/16 21:59 07/29/16 10:04 125 MLS/HR Docusate Sodium 100 mg 100 mg BID PO 07/27/16 21:00 08/26/16 20:59 07/29/16 08:36 100 MG Potassium Chloride/Dextrose/ Sod Cl (D5W And 1/2nss + 20meq KCl) 1,000 ml @ 50 mls/hr Q20H IV 07/27/16 12:15 08/26/16 12:14 07/29/16 04:43 50 MLS/HR Objective Vital Signs Date Time Temp Pulse Resp B/P Pulse Ox O2 Delivery O2 Flow Rate FiO2 07/29/16 08:26 93 Room Air 07/29/16 07:48 36.7 76 18 110/62 93 Room Air 07/29/16 07:15 Room Air 07/28/16 23:12 36.8 78 18 155/69 96 Room Air 07/28/16 21:05 Room Air 07/28/16 15:54 36.5 74 18 112/61 95 Room Air Physical Exam General Appearance: no apparent distress Respiratory/Chest: lungs clear, normal breath sounds, no respiratory distress, no accessory muscle use Cardiovascular: regular rate, rhythm, no edema, no murmur Abdomen: normal bowel sounds, non tender, soft Extremities: normal inspection, no pedal edema Neurologic/Psychiatric: no motor/sensory deficits, alert, normal mood/affect Laboratory Results Last 24 Hours Test 07/29/16 05:47 White Blood Count 2.15 K/uL Red Blood Count 4.02 M/uL Hemoglobin 12.7 g/dL Hematocrit 37.1 % Mean Corpuscular Volume 92.3 fL Mean Corpuscular Hemoglobin 31.6 pg Mean Corpuscular Hemoglobin Concent 34.2 g/dl Platelet Count 215 K/uL Mean Platelet Volume 9.1 fL RDW Standard Deviation 45.6 fL RDW Coefficient of Variation 13.4 % Neutrophils % (Manual) 44.0 % Lymphocytes % (Manual) 14.0 % Variant Lymphocytes % (manual) 15.8 % Monocytes % (Manual) 9.6 % Eosinophils % (Manual) 9.6 % Basophils % (Manual) 0.9 % Metamyelocytes % 6.1 % Neutrophils # (Manual) 0.95 K/uL Total Absolute Neutrophils 0.95 K/uL Lymphocytes # (Manual) 0.30 K/uL Absolute Variant Lymphocytes 0.34 K/uL Total Absolute Lymphocytes 0.64 K/uL Monocytes # (Manual) 0.21 K/uL Eosinophils # (Manual) 0.21 K/uL Basophils # (Manual) 0.02 K/uL Metamyelocytes # 0.13 K/uL Hyposegmented Neutrophils 1+ Dohle Bodies 1+ Sodium Level 144 mmol/L Potassium Level 3.8 mmol/L Chloride Level 110 mmol/L Carbon Dioxide Level 26 mmol/L Anion Gap 8.0 mmol/L Blood Urea Nitrogen 10 mg/dl Creatinine 1.10 mg/dl Est Creatinine Clear Calc Drug Dose 70.5 ml/min Estimated GFR () 77.9 Estimated GFR (Non- 67.2 BUN/Creatinine Ratio 8.7 Random Glucose 116 mg/dl Calcium Level 8.2 mg/dl Magnesium Level 2.5 mg/dl Assessment and Plan This is a 71 year old male with PMH of lymphoma s/p chemotherapy (last one in November) presents with perianal abscess Right Perianal Abscess 07/29 will d/c patient home today d/c with Bactrim PO x 7 days as per surgery outpatient f/u in 1 week with general surgery outpatient f/u in 1 week with PCP - outpatient blood work 07/28 appreciate general surgery input s/p I&D currently on abx. can d/c in AM with bactrim x 10 days Pain controlled Lymphoma 07/[address] Parker, oncology, [place] to d/c with neutropenia outpatient f/u with Dr. Hernandez 07/28 continues to have leukopenia, neutropenia will monitor with antibiotics may need to contact hem/onc (Dr. Hernandez) prior to discharge DVT ppx SCDs FULL CODE
[2016-07-29] MEDS ORDERED: CLC100 PO ×2 (12:45)
[2016-07-29] MEDS ORDERED: SULF800T23 PO ×2 (12:45)
--- NOTE | 2016-07-29 12:54 | Discharge Instructions ---
Discharge Instructions Admission Reason for Admission: Perirectal Abscess Discharge Discharge Diagnosis / Problem: Perirectal Abscess Discharge Goals Goal(s): Decrease discomfort, Improve function Activity Recommendations Activity Limitations: resume your previous activity . Instructions / Follow-Up Instructions / Follow-Up Please follow-up with General Surgery, Dr. Freedman, in one week Please follow-up with Dr. Chahal on August 03 @ 12:50PM * You will be taking Bactrim (antibiotic) twice a day for seven days * There are no activity restrictions * Primary care should recheck blood work next week (CBC with Diff) * Follow-up with Dr. Hernandez as scheduled Current Hospital Diet Patient's current hospital diet: Regular Diet Discharge Diet Recommended Diet: Regular Diet (high fiber) Procedures Procedures Performed: I/D perirectal abscess and incision drainage thromobotic rxternal hemorrhoid Pending Studies Studies pending at discharge: no Medical Emergencies . Who to Call and When: Medical Emergencies: If at any time you feel your situation is an emergency, please call 911 immediately. . Non-Emergent Contact Non-Emergency issues call your: Primary Care Provider Call Non-Emergent contact if: you have a fever, temperature is above 101, your pain is not controlled . . "Provider Documentation" section prepared by Louie Valenzuela. VTE Core Measure Inpt VTE Proph given/why not?: SCD's
--- NOTE | 2016-07-29 12:55 | Discharge Summary ---
Discharge Summary Admission Date: Jul 26, 2016 at 23:41 Discharge Date: Jul 29, 2016 Discharge Disposition: Home Principal Diagnosis: Perirectal Abscess Medication Reconciliation New Medications: Sulfa/Trimethoprim (Bactrim Ds 800MG/160MG) Tab 1 TAB PO BID for 7 Days, #14 TAB Docusate Sodium (Docusate Sodium) 100 Mg Cap 100 MG PO BID for 30 Days, #60 CAP Continued Medications: [Pain medication] () Unknown Dose PO Admission Information HPI (per Admitting provider): 71 YO male followed by Dr. Chahal for Internal Medicine and Dr. Hernandez for Hematology / Oncology. History of lymphoma. Last chemo about a month ago. Presented to ED with severe rectal pain. Symptoms started about 10 days ago and have progressively worsened. Pain worse when sitting. No significant worsening with bowel movements. Minimal amount of blood on toilet paper. No associated fever, nausea, vomiting. Tried oxycodone without benefit. now pt is still have rectal pain, pt denies fever, last BM 5 days ago. . Physical Exam (per Admitting): General Appearance: WD/WN, no apparent distress Head: normocephalic, atraumatic Eyes: EOMI, sclerae normal, + pertinent finding (s/p surgical changes right iris) ENT: hearing grossly normal, pharynx normal Neck: supple, no adenopathy, thyroid normal, no JVD, trachea midline Respiratory/Chest: lungs clear, no respiratory distress, no accessory muscle use Cardiovascular: regular rate, rhythm, no edema, no gallop, no JVD, no murmur Abdomen/GI: normal bowel sounds, non tender, soft, no organomegaly, + pertinent finding (hemorrhoids; right perirectal tenderness) Extremities/Musculoskelatal: normal inspection, no calf tenderness 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, no motor/sensory deficits ( grossly intact), alert, normal mood/affect, oriented x 3 Skin: normal color, warm/dry Lymphatic: no adenopathy Physical Exam (per Admitting): rectal exam- right perirectal abscess, size 3x3cm, redness, tenderness, external hemorrhoid, some small drainage, pus, possible fistula, Hospital Course This is a 71 year old male with PMH of lymphoma s/p chemotherapy (last one in November) presents with perianal abscess Right Perianal Abscess 07/29 will d/c patient home today d/c with Bactrim PO x 7 days as per surgery outpatient f/u in 1 week with general surgery outpatient f/u in 1 week with PCP - outpatient blood work 07/28 appreciate general surgery input s/p I&D currently on abx. can d/c in AM with bactrim x 10 days Pain controlled Lymphoma 07/[address] Parker, oncology, okay to d/c with neutropenia outpatient f/u with Dr. Hernandez 07/28 continues to have leukopenia, neutropenia will monitor with antibiotics may need to contact hem/onc (Dr. Hernandez) prior to discharge DVT ppx SCDs FULL CODE Total time spent on discharge = 40 minutes This includes examination of the patient, discharge planning, medication reconciliation, and communication with other providers. Discharge Instructions Please follow-up with General Surgery, Dr. Freedman, in one week Please follow-up with Dr. Chahal on August 03 @ 12:50PM * You will be taking Bactrim (antibiotic) twice a day for seven days * There are no activity restrictions * Primary care should recheck blood work next week (CBC with Diff) * Follow-up with Dr. Hernandez as scheduled
[2016-07-29 13:14] VITALS: BP 110/62; PULSE 76; TEMP 36.7; O2SAT 93
== END 2016-07-29 14:00 | disposition home or self-care (01) | DRG 394 ==
LOC: ENRESERVDT → ENRESERVTM → C.EDB 18:51 → C.MSW 23:41
PROVIDERS: ADMIT Hospitalist; ATTEND Family Medicine
PROC: 0H98XZZ Drainage of Buttock Skin, External Approach (ICD-10-PCS; principal; 2016-07-27 10:00)
DX: K61.2 Anorectal abscess (principal); C85.90 Non-Hodgkin lymphoma, unspecified, unspecified site; Z92.21 Personal history of antineoplastic chemotherapy; D70.9 Neutropenia, unspecified; Z87.891 Personal history of nicotine dependence; H54.61 Unqualified visual loss, right eye, normal vision left eye; Z87.442 Personal history of urinary calculi; Z80.9 Family history of malignant neoplasm, unspecified; Z82.49 Family history of ischemic heart disease and other diseases of the circulatory system; K64.8 Other hemorrhoids; K64.5 Perianal venous thrombosis

== ENCOUNTER 2019-01-06 22:02 | Observation (INO) ==
--- OUTSIDE RECORDS SUMMARY | 2019-01-06 22:06 | External Medical Summary | Continuity of Care Document ---
:1945 Author Name Jorge Luis Parks, Provider Address Unavailable Unavailable , Care Team Providers Name Role Phone Unavailable Unavailable Unavailable PCP, UNKNOWN Unavailable Unavailable Problems Active medical history not documented Allergies and Adverse Reactions Allergy history not documented Medications Medications not documented Procedures Procedures not documented Immunizations Shingrix 50 MCG Intramuscular Suspension Reconstituted On: 1 28-Feb-2018 Plan of Treatment Planned Observations Planned Goals not documented Results No Known Results Results not documented
[2019-01-06 23:13] LABS: Basophils # (auto) 0.05 K/uL (0-0.2); Basophils % (auto) 0.5 %; Eosinophils # (auto) 0.09 K/uL (0-0.5); Hematocrit (blood only) 37.9 % (42-52); Hemoglobin 12.9 g/dL (14.0-18.0); Immature Granulocytes # (auto) 0.45 K/uL (0.00-0.02); Immature Granulocytes % (auto) 4.8 %; Lymphocytes # (auto) 1.45 K/uL (1.2-3.4); Lymphocytes % (auto) 15.4 %; Mean Corpuscular Volume 95.2 fL (80-100); Mean Platelet Volume 9.8 fL (7.4-10.4); Monocytes # (auto) 1.48 K/uL (0.11-0.59); Monocytes % (auto) 15.8 %; Neutrophils # (auto) 5.87 K/uL (1.4-6.5); Neutrophils % (auto) 62.5 %; Platelet Count 386 K/uL (130-400); RDW Coefficient of Variation 12.6 % (11.5-14.5); RDW Standard Deviation 43.9 fL (36.4-46.3); Red Blood Count 3.98 M/uL (4.7-6.1); White Blood Count 9.39 K/uL (4.8-10.8)
[2019-01-06 23:37] LABS: Alanine Aminotransferase 93 U/L (12-78); Aspartate Aminotransferase 31 U/L (15-37); BUN Creatinine Ratio 22.8 (10-20); Blood Urea Nitrogen 24 mg/dl (7-18); Calcium 8.9 mg/dl (8.5-10.1); Carbon Dioxide 27 mmol/L (21-32); Chloride 101 mmol/L (98-107); Est GFR (African American) 80.3; Est GFR (Non-African American) 69.3; Glucose 105 mg/dl (70-99); Potassium 2.9 mmol/L (3.5-5.1); Sodium 138 mmol/L (136-145)
[2019-01-06 23:44] LABS: Appearance Urine Clear (Clear); Bilirubin Urine Negative (Negative); Blood Urine Negative (Negative); Color Urine Yellow; Glucose Urine UA Negative (Negative); Ketones Urine 1+ (Negative); Leukocyte Esterase Urine Negative (Negative); Nitrite Urine Negative (Negative); Protein Urine Negative (Negative); Specific Gravity Urine 1.024 (1.000-1.030); Urobilinogen Urine Negative (Negative); pH Urine 5.5 (4.5-7.5)
[2019-01-06 23:48] LABS: Albumin Globulin Ratio 0.9 (0.9-2); Alkaline Phosphatase 81 U/L (45-117); Bilirubin,Total 0.4 mg/dl (0.2-1); Globulin 3.3 gm/dl (2.5-4.0); Total Protein 6.3 gm/dl (6.4-8.2); Troponin I < 0.015 ng/ml (0-0.045)
[2019-01-07] MEDS ORDERED: POTASSIUM CHLORIDE 10 MEQ TABCR PO STA (00:06)
[2019-01-07] MEDS ORDERED: OPTIRAY 320 125ml IV PRN (00:10)
[2019-01-07] MEDS ORDERED: LACTATED RINGER'S 1,000 ML IV ONE ×2 (01:05→04:00)
--- NOTE | 2019-01-07 01:49 | Emergency Department Note ---
History of Present Illness General Chief complaint: Tachycardia Stated complaint: HIGH HEART RATE History of Present Illness Maximum Pain Intensity: 0 This 73-year-old presents to the ER complaining of dyspnea and tachycardia Location: Generalized Quality: Weak Severity: Moderate Duration: Past few days Timing: Started a few days ago Context: Patient had a hip replacement at the beginning a month and then an ileus and was doing well until today Modifying factors: better with rest; worse with activity Patient was released 5 days ago from [employer] for ileus. He was placed on aspirin. No Lovenox. The home health nurse was concerned and will restart Lovenox tomorrow. Today patient became more short of breath and developed tachycardia. Family was concerned and brought him in. They state he is more weak than normal. Patient denies chest pain, abdominal pain, fever, chills. He is tolerating p.o. fluids but has a lack of appetite. Heart rate was up to the 120s. No history of A. fib/flutter. No history of PE or heart disease. Home Medications Home Medications Medication Instructions Recorded Confirmed Type Pain medication PO #0 07/26/16 History Docusate Sodium 100 mg PO BID 30 Days #60 cap 07/29/16 Rx Sulfa/Trimethoprim (Bactrim Ds 1 tab PO BID 7 Days #14 tab 07/29/16 Rx 800MG/160MG) Allergies Allergy/AdvReac Type Severity Reaction Status Date / Time No Known Allergies Allergy Verified 07/26/16 20:52 Past Med/Surg History Surgical History History of hip replacement Social History Preferred Language: Swiss Feels Safe at Home: Yes Smoking Status: Former smoker Review of Systems All systems reviewed & are unremarkable except as noted in HPI & below Physical Exam Vital Signs Vital Signs - 24 hr 01/06/19 22:13 01/06/19 22:43 01/06/19 23:32 Temperature 36.6 C Temperature Source Oral Sepsis Recent Fever Within 48 Hours No Sepsis New/Unexplained Change in Mental Status No Sepsis Action Taken by Nursing No Action Required Pulse Rate 110 H 107 H Pulse Rate [Left Apical] Pulse Rate from SpO2 Sensor 107 H Respiratory Rate 22 18 Respiratory Effort / Characteristics Respiratory Depth Respiratory Pattern Blood Pressure 127/65 103/79 Blood Pressure [Right Arm] Blood Pressure Mean 85 87 Blood Pressure Mean [Right Arm] Blood Pressure Position [Right Arm] Pulse Oximetry 94 95 Oxygen Delivery Method Room Air Room Air 01/06/19 23:43 01/06/19 23:45 01/07/19 00:45 Temperature Temperature Source Sepsis Recent Fever Within 48 Hours Sepsis New/Unexplained Change in Mental Status Sepsis Action Taken by Nursing Pulse Rate 105 H 101 H Pulse Rate [Left Apical] 114 H Pulse Rate from SpO2 Sensor 105 H 101 H Respiratory Rate 12 16 22 Respiratory Effort / Characteristics Non-Labored Spontaneous Respiratory Depth Normal Respiratory Pattern Regular Blood Pressure Blood Pressure [Right Arm] 120/82 Blood Pressure Mean Blood Pressure Mean [Right Arm] 94 Blood Pressure Position [Right Arm] Sitting Pulse Oximetry 95 93 97 Oxygen Delivery Method Room Air VITALS: Vitals are noted on the nurse's note and reviewed by myself. Vital signs tachycardic. GENERAL: Pleasant male, in no acute distress, nondiaphoretic, well-developed well-nourished. SKIN: The skin was without rashes, erythema, edema, or bruising. There is no tenting of the skin. Capillary reflex less than 2 seconds. HEAD: Normocephalic atraumatic. EARS: External auditory canals clear, tympanic membranes pearly harris without erythema or effusion bilaterally. EYES: Pupils equal round and reactive to light and accommodation. Conjunctivae without injection, sclerae without icterus. Extraocular movements intact. NOSE: Patent, turbinates without inflammation or discharge. MOUTH: Mucous membranes moist. Pharynx without erythema or exudate. Uvula midline. Airway patent. Tongue does not deviate. NECK: Supple without nuchal rigidity. No lymphadenopathy. No thyromegaly. Cervical spine is nontender. No JVD. HEART: Tachycardic rate and rhythm LUNGS: Clear to auscultation bilaterally without wheezes, rales or rhonchi. No retractions or accessory muscle use. ABDOMEN: Positive bowel sounds x 4. Normal tympanic percussion. Soft, nontender, without masses or organomegaly. Gibson sign negative. No guarding or rebound tenderness. No CVA tenderness MUSCULOSKELETAL: No muscle atrophy, erythema, noted. NEURO: Patient was alert and oriented to person place and time. Normal sensation to light and sharp touch. No focal neurological deficits. Course Administered Medications Lactated Ringer's (Lr) 1,000 mls @ 500 mls/hr IV .Q2H ONE Stop: 01/07/19 03:04 Last Admin: 01/07/19 01:34 Dose: 500 mls/hr Documented by: [id number] Ioversol (Optiray 320 125ml) 119 ml IV ONCE PRN PRN Reason: Interaction Checking Stop: 01/11/19 00:09 Last Admin: 01/07/19 00:10 Dose: 1 ml Documented by: [id number] Discontinued Medications Potassium Chloride (Klor-Con M10) 40 meq PO NOW STA Stop: 01/07/19 00:07 Last Admin: 01/07/19 00:43 Dose: 40 meq Documented by: [id number] Medical Decision Making Medical Records Attestation: I reviewed the patient's medical records. Home Medications Current Medication List: was personally reviewed by me Laboratory Data Attestation: I reviewed the patient's lab results. Result diagrams: 01/06/19 23:03 01/06/19 23:03 Lab Results 01/06/19 01/06/19 01/06/19 Range/Units 23:03 23:03 23:12 WBC 9.39 (4.8-10.8) K/uL RBC 3.98 L (4.7-6.1) M/uL Hgb 12.9 L (14.0-18.0) g/dL Hct 37.9 L (42-52) % MCV 95.2 (80-100) fL MCH 32.4 (25-34) pg MCHC 34.0 (32-36) g/dL RDW Std Deviation 43.9 (36.4-46.3) fL RDW Coeff of Briana 12.6 (11.5-14.5) % Plt Count 386 (130-400) K/uL MPV 9.8 (7.4-10.4) fL Immature Gran % (Auto) 4.8 % Neut % (Auto) 62.5 % Lymph % (Auto) 15.4 % Greer % (Auto) 15.8 % Eos % (Auto) 1.0 % Baso % (Auto) 0.5 % Immature Gran # (Auto) 0.45 H (0.00-0.02) K/uL Neut # (Auto) 5.87 (1.4-6.5) K/uL Lymph # (Auto) 1.45 (1.2-3.4) K/uL [place] # (Auto) 1.48 H (0.11-0.59) K/uL Eos # (Auto) 0.09 (0-0.5) K/uL Baso # (Auto) 0.05 (0-0.2) K/uL Sodium 138 (136-145) mmol/L Potassium 2.9 L (3.5-5.1) mmol/L Chloride 101 (98-107) mmol/L Carbon Dioxide 27 (21-32) mmol/L Anion Gap 10.0 (3-11) BUN 24 H (7-18) mg/dl Creatinine 1.06 (0.6-1.4) mg/dl Est Cr Clr Drug Dosing Not Reportable Est GFR ( Amer) 80.3 Est GFR (Non-Af Amer) 69.3 BUN/Creatinine Ratio 22.8 H (10-20) Glucose 105 H (70-99) mg/dl Calcium 8.9 (8.5-10.1) mg/dl Magnesium 2.0 (1.8-2.4) mg/dl Total Bilirubin 0.4 (0.2-1) mg/dl AST 31 (15-37) U/L ALT 93 H (12-78) U/L Alkaline Phosphatase 81 (45-117) U/L POC Troponin I < 0.03 (0-0.045) ng/ml Troponin I < 0.015 (0-0.045) ng/ml Total Protein 6.3 L (6.4-8.2) gm/dl Albumin 3.0 L (3.4-5.0) gm/dl Globulin 3.3 (2.5-4.0) gm/dl Albumin/Globulin Ratio 0.9 (0.9-2) Lipase 251 (73-393) U/L TSH 0.658 (0.300-4.500) uIu/ml Urine Color Urine Appearance (Clear) Urine pH (4.5-7.5) Ur Specific [place] (1.000-1.030) Urine Protein (Negative) Urine Glucose (UA) (Negative) Urine Ketones (Negative) Urine Blood (Negative) Urine Nitrite (Negative) Urine Bilirubin (Negative) Urine Urobilinogen (Negative) Ur Leukocyte Esterase (Negative) 01/06/19 Range/Units 23:30 WBC (4.8-10.8) K/uL RBC (4.7-6.1) M/uL Hgb (14.0-18.0) g/dL Hct (42-52) % MCV (80-100) fL MCH (25-34) pg MCHC (32-36) g/dL RDW Std Deviation (36.4-46.3) fL RDW Coeff of Briana (11.5-14.5) % Plt Count (130-400) K/uL MPV (7.4-10.4) fL Immature Gran % (Auto) % Neut % (Auto) % Lymph % (Auto) % [place] % (Auto) % Eos % (Auto) % Baso % (Auto) % Immature Gran # (Auto) (0.00-0.02) K/uL Neut # (Auto) (1.4-6.5) K/uL Lymph # (Auto) (1.2-3.4) K/uL [place] # (Auto) (0.11-0.59) K/uL Eos # (Auto) (0-0.5) K/uL Baso # (Auto) (0-0.2) K/uL Sodium (136-145) mmol/L Potassium (3.5-5.1) mmol/L Chloride (98-107) mmol/L Carbon Dioxide (21-32) mmol/L Anion Gap (3-11) BUN (7-18) mg/dl Creatinine (0.6-1.4) mg/dl Est Cr Clr Drug Dosing Est GFR ( Amer) Est GFR (Non-Af Amer) BUN/Creatinine Ratio (10-20) Glucose (70-99) mg/dl Calcium (8.5-10.1) mg/dl Magnesium (1.8-2.4) mg/dl Total Bilirubin (0.2-1) mg/dl AST (15-37) U/L ALT (12-78) U/L Alkaline Phosphatase (45-117) U/L POC Troponin I (0-0.045) ng/ml Troponin I (0-0.045) ng/ml Total Protein (6.4-8.2) gm/dl Albumin (3.4-5.0) gm/dl Globulin (2.5-4.0) gm/dl Albumin/Globulin Ratio (0.9-2) Lipase (73-393) U/L TSH (0.300-4.500) uIu/ml Urine Color Yellow Urine Appearance Clear (Clear) Urine pH 5.5 (4.5-7.5) Ur Specific [place] 1.024 (1.000-1.030) Urine Protein Negative (Negative) Urine Glucose (UA) Negative (Negative) Urine Ketones 1+ H (Negative) Urine Blood Negative (Negative) Urine Nitrite Negative (Negative) Urine Bilirubin Negative (Negative) Urine Urobilinogen Negative (Negative) Ur Leukocyte Esterase Negative (Negative) Imaging Data Attestation: I personally reviewed and interpreted this imaging study as follows: Blood Pressure Blood Pressure Findings: Normal blood pressure MDM Narrative Prior records/ancillary studies reviewed and summarized above. Nursing notes reviewed. Additional history obtained from family. The patient's history was concerning for dyspnea and tachycardia. Differential diagnosis: Etiologies such as metabolic, infection, hypo/hyperglycemia, electrolyte abnormalities, cardiac sources, intracerebral event, toxicologic, neurologic, as well as others were entertained. Physical examination: As above. ER treatment provided: IV Lock Patient was observed On reassessment the patient felt better. I obtained the records from [employer] and did review them. Diagnostics interpretation by me: ECG: Normal sinus, normal intervals, occasional PVC, no acute ST-T wave changes. Impression sinus tachycardia with occasional PVC interpreted by myself I think arrhythmia is unlikely. EKG shows normal sinus rhythm with no interval abnormalities such as QT prolongation or WPW. There are no findings to suggest Brugada syndrome. Cardiac monitoring in the emergency department reveals no tachycardic or bradycardic dysrhythmia. Hypertrophic cardiomyopathy was considered but there are no clear historical elements pointing toward this. EKG is not suggestive. The QRS voltage is not extremely large and there are no suggestive Q waves. The labs revealed hypokalemia this is replaced orally Normal magnesium. Imaging studies: CTA CHEST: No pulmonary embolus. No effusion or consolidation. Radiologist: Jana Macedo M.D. Consultation: A consultation was placed with the hospitalist, Dr Teixeira. The case was discussed and diagnostics were reviewed. The patient was evaluated in the ER for further treatment. Exam and history seem consistent with tachycardia and dyspnea with unclear etiology. Potassium was replaced. Euthyroid. Negative CTA. Patient is agreeable treatment plan of admission. By the evaluation outlined above emergent etiologies such as infection, in tracerebral event, toxologic, neurologic, abnormalities blood glucose, metabolic, as well as others were deemed relatively unlikely. The pt informed about the findings as listed above. All questions were answered and pleased with the treatment. Case reviewed with my attending The chart was completed utilizing [employer] Speech voice recognition software. Grammatical errors, random word insertions, pronoun errors, and incomplete sentences are an occassional consequence of this system due to software limitations, ambient noise, and hardware issues. Any formal questions or concerns about the content, text, or information contained within the body of this dictation should be directly addressed to the physician diploma dental assistant for clarification. Impression & Plan Tachycardia, Acute dyspnea, Acute hypokalemia Discharge Plan Visit Data Chief Complaint: Tachycardia Stated Complaint: HIGH HEART RATE ED Provider: Salo Suarez ED Midlevel Provider: Sanjana Newman Discharge Problem: Tachycardia, Acute dyspnea, Acute hypokalemia Patient Disposition: Being Evaluated by Hospitalist Condition: Fair Forms Stand Alone Forms: [facility] Prescriptions Prescriptions: No Action Pain medication PO Qty: 0 RF: 0 Docusate Sodium 100 MG capsule 100 mg PO BID 30 Days Qty: 60 RF: 0 Sulfa/Trimethoprim (Bactrim Ds 800MG/160MG) tablet 1 tab PO BID 7 Days Qty: 14 RF: 0 Referrals Referrals: Philip Chahal MD [Primary Care Provider] -
[2019-01-07] MEDS ORDERED: POTASSIUM CHLORIDE 20 MEQ TABCR PO STA (01:55)
[2019-01-07 01:59] LABS: Partial Thromboplastin Ratio 0.9; Partial Thromboplastin Time 23.8 Seconds (21.0-31.0)
--- NOTE | 2019-01-07 02:30 | History & Physical Report ---
Date of Service January 07, 2019 Assessment & Plan (1) Tachycardia: Secondary to clinical dehydration with note of ketonuria, history postop ileus Hypokalemia Recent right hip surgery chronic diastolic dysfunction (EF 55-59, TTE 2017), patient on the dry side PAD as per records prediabetes as per records (hemoglobin A1c of 6.2 last November 2018) follicular lymphoma status post chemotherapy, currently in remission Postop anemia, at baseline of 12 from [facility] at time of discharge past tobacco abuse. OBS Medical telemetry IVF, replace electrolytes Home in a.m. if heart rate controlled and no other arrhythmias noted on telemetry. DVT prophylaxis. Lovenox subcu, home rx as prescribed by patient's operating systems specialist Full code History of Present Illness Chief Complaint: Exertional S OB, Tachycardia Primary Care Provider: Philip Chahal MD History obtained from patient and records. Medical history significant for chronic diastolic dysfunction (EF 55-59, TTE 2017), PAD, prediabetes as per records, follicular lymphoma status post chemotherapy, past tobacco abuse. Recent confinement [facility] from December 26 to January 04, 2018 for right hip arthroplasty. Postop patient had traumatic urinary Muir catheterization complications. Patient also developed bowel ileus status post NGT insertion. Yesterday, patient noted by home health nurse to be tachycardic cardiac rate 120s. Patient denies chest pain, abdominal pain, cough, diarrhea, dysuria, fever, chills. Exertional S OB with moving around from recent right hip surgery as per patient. Appetite was not too good after ileus event in the hospital as per patient. 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 Allergies Allergy/AdvReac Type Severity Reaction Status Date / Time No Known Allergies Allergy Verified 01/07/19 02:06 Home Medications Home Medications Medication Instructions Recorded Confirmed Type etodolac 1,000 mg PO DAILY 01/07/19 01/07/19 History oxycodone-acetaminophen 1 tab PO Q4 PRN 01/07/19 01/07/19 History Past Med/Surg History Surgical History History of hip replacement Social History Preferred Language: Irish Communication Ability: Effective Beliefs That Will Affect Care: None Current Living Situation: Family Other Information That Helps Us Care for You: No Feels Safe at Home: Yes Smoking Status: Former smoker Hx Substance Use: No Review of Systems Review of Systems: GENERAL: Comfortable, pleasant, obese, no respiratory distress SKIN: Pallor , warm HEENT: Bespectacled, pale palpebral conjunctivae, no ptosis, dry buccal mucosa NECK : Supple, short, no tenderness CHEST : CTA, no tenderness HEART : Tachycardic , no obvious murmurs ABDOMEN: Some distention, nontender EXTREMITIES : Minimal right hip tenderness, minimal LE swelling NEUROLOGIC : Coherent, no facial asymmetry, no other gross focality Results & Data Vital Signs (Past 12 Hours) Vital Signs Temp Pulse Pulse Resp BP BP Pulse Ox 01/07/19 02:15 100 H 27 H 01/07/19 02:00 98 H 26 H 01/07/19 01:45 106 H 22 01/07/19 01:31 108 H 23 140/85 01/07/19 01:30 109 H 19 01/07/19 01:15 108 H 20 01/07/19 01:00 110 H 20 01/07/19 00:45 116 H 114 H 20 120/82 97 01/07/19 00:30 93 01/07/19 00:25 116 H 17 120/82 95 01/07/19 00:24 120 H 26 H 01/06/19 23:45 101 H 16 93 01/06/19 23:43 105 H 12 95 01/06/19 23:32 107 H 18 103/79 95 01/06/19 22:13 36.6 C 110 H 22 127/65 94 Laboratory Results Laboratory Results WBC 9.39 K/uL (4.8-10.8) 01/06/19 23:03 RBC 3.98 M/uL (4.7-6.1) L 01/06/19 23:03 Hgb 12.9 g/dL (14.0-18.0) L 01/06/19 23:03 Hct 37.9 % (42-52) L 01/06/19 23:03 MCV 95.2 fL (80-100) 01/06/19 23:03 MCH 32.4 pg (25-34) 01/06/19 23:03 MCHC 34.0 g/dL (32-36) 01/06/19 23:03 RDW Std Deviation 43.9 fL (36.4-46.3) 01/06/19 23:03 RDW Coeff of Briana 12.6 % (11.5-14.5) 01/06/19 23:03 Plt Count 386 K/uL (130-400) 01/06/19 23:03 MPV 9.8 fL (7.4-10.4) 01/06/19 23:03 Immature Gran % (Auto) 4.8 % 01/06/19 23:03 Neut % (Auto) 62.5 % 01/06/19 23:03 Lymph % (Auto) 15.4 % 01/06/19 23:03 [place] % (Auto) 15.8 % 01/06/19 23:03 Eos % (Auto) 1.0 % 01/06/19 23:03 Baso % (Auto) 0.5 % 01/06/19 23:03 Immature Gran # (Auto) 0.45 K/uL (0.00-0.02) H 01/06/19 23:03 Neut # (Auto) 5.87 K/uL (1.4-6.5) 01/06/19 23:03 Lymph # (Auto) 1.45 K/uL (1.2-3.4) 01/06/19 23:03 [place] # (Auto) 1.48 K/uL (0.11-0.59) H 01/06/19 23:03 Eos # (Auto) 0.09 K/uL (0-0.5) 01/06/19 23:03 Baso # (Auto) 0.05 K/uL (0-0.2) 01/06/19 23:03 APTT 23.8 Seconds (21.0-31.0) 01/06/19 22:37 PTT Ratio 0.9 01/06/19 22:37 Sodium 138 mmol/L (136-145) 01/06/19 23:03 Potassium 2.9 mmol/L (3.5-5.1) L 01/06/19 23:03 Chloride 101 mmol/L (98-107) 01/06/19 23:03 Carbon Dioxide 27 mmol/L (21-32) 01/06/19 23:03 Anion Gap 10.0 (3-11) 01/06/19 23:03 BUN 24 mg/dl (7-18) H 01/06/19 23:03 Creatinine 1.06 mg/dl (0.6-1.4) 01/06/19 23:03 Est Cr Clr Drug Dosing Not Reportable 01/06/19 23:03 Est GFR ( Amer) 80.3 01/06/19 23:03 Est GFR (Non-Af Amer) 69.3 01/06/19 23:03 BUN/Creatinine Ratio 22.8 (10-20) H 01/06/19 23:03 Glucose 105 mg/dl (70-99) H 01/06/19 23:03 Calcium 8.9 mg/dl (8.5-10.1) 01/06/19 23:03 Magnesium 2.0 mg/dl (1.8-2.4) 01/06/19 23:03 Total Bilirubin 0.4 mg/dl (0.2-1) 01/06/19 23:03 AST 31 U/L (15-37) 01/06/19 23:03 ALT 93 U/L (12-78) H 01/06/19 23:03 Alkaline Phosphatase 81 U/L (45-117) 01/06/19 23:03 POC Troponin I < 0.03 ng/ml (0-0.045) 01/06/19 23:12 Troponin I < 0.015 ng/ml (0-0.045) 01/06/19 23:03 Total Protein 6.3 gm/dl (6.4-8.2) L 01/06/19 23:03 Albumin 3.0 gm/dl (3.4-5.0) L 01/06/19 23:03 Globulin 3.3 gm/dl (2.5-4.0) 01/06/19 23:03 Albumin/Globulin Ratio 0.9 (0.9-2) 01/06/19 23:03 Lipase 251 U/L (73-393) 01/06/19 23:03 TSH 0.658 uIu/ml (0.300-4.500) 01/06/19 23:03 Urine Color Yellow 01/06/19 23:30 Urine Appearance Clear (Clear) 01/06/19 23:30 Urine pH 5.5 (4.5-7.5) 01/06/19 23:30 Ur Specific [place] 1.024 (1.000-1.030) 01/06/19 23:30 Urine Protein Negative (Negative) 01/06/19 23:30 Urine Glucose (UA) Negative (Negative) 01/06/19 23:30 Urine Ketones 1+ (Negative) H 01/06/19 23:30 Urine Blood Negative (Negative) 01/06/19 23:30 Urine Nitrite Negative (Negative) 01/06/19 23:30 Urine Bilirubin Negative (Negative) 01/06/19 23:30 Urine Urobilinogen Negative (Negative) 01/06/19 23:30 Ur Leukocyte Esterase Negative (Negative) 01/06/19 23:[address] chest initial read no pulmonary embolus. No effusion or consolidation. EKG as per my interpretation rate 105, sinus tachycardia, normal axis, PVCs
[2019-01-07] MEDS ORDERED: NITROGLYCERIN SL 0.4 MG/TAB TAB SL PRN (03:59)
[2019-01-07] MEDS ORDERED: PROMETHAZINE HCL 12.5 MG in SODIUM CHLORIDE 0.9% 50 ML IV PRN (03:59)
[2019-01-07] MEDS ORDERED: ACETAMINOPHEN 325 MG TAB PO PRN (03:59)
[2019-01-07] MEDS ORDERED: OXYCODONE/ACETAMINOPHEN 5mg/325mg TAB PO PRN (03:59)
--- NOTE | 2019-01-07 05:32 | XRay Report ---
XR chest 1V portable CLINICAL HISTORY: 73 years-old Male presenting with Chest Pain. TECHNIQUE: Portable upright AP view of the chest was obtained. COMPARISON: None. FINDINGS: Atherosclerosis of the aortic arch. Cardiac silhouette enlarged. Elevation of the left hemidiaphragm. Resulting decreased aeration of the left lower lung. No other focal opacity. No large effusion or pn eumothorax. Degenerative changes of the thoracic spine. Gaseous distended colon subjacent to the left hemidiaphragm. IMPRESSION: 1. Cardiomegaly. No other convincing evidence of acute cardiopulmonary disease. 2. Hemidiaphragm elevation with resulting decreased aeration of the left lung. This may be on a chrome cleaner snehal basis. Electronically signed by: Joby Blackburn M.D. 01/07/2019 5:31 AM
--- NOTE | 2019-01-07 06:03 | CT Scan Report ---
CT angio chest PE protocol CLINICAL HISTORY: 73 years-old Male presenting with recent surgery, shortness of breath, clinical con cern for pulmonary embolus. TECHNIQUE: Multidetector CT angiography of the chest was performed after administration of intravenou s contrast. 3-D volumetric and/or maximum intensity projection (MIP) images were subsequently reconst ructed for review. IV contrast: 119 mL of Optiray 320. One or more dose lowering techniques were used consistent with the principles of ALARA (as low as reasonably achievable), including automatic expos ure control, mA or kV adjustment to individual patient size, and/or use of iterative reconstruction. COMPARISON: Chest x-ray performed the previous day. CT DOSE (mGy.cm): The estimated cumulative dose is 721.08 mGy.cm. FINDINGS: Hardwood Floor Finisher topogram: Unremarkable. Pulmonary vasculature: The study is suboptimal for the assessment of the pulmonary vascular tree secondary to timing of the contrast bolus. No filling defect within the pulmonary arteries to suggest embolus. Main pulmonary ar gwendolyn is not enlarged. No flattening of the interventricular septum. No intracardiac filling defect. N o reflux of contrast into the hepatic veins. Remaining chest: Soft tissues: Normal thyroid and thoracic inlet. No axillary, supraclavicular, mediastinal, or hilar lymphadenopathy. Normal aorta. Normal heart size. Coronary artery calcification. Prominent or cardial fat pads. No pericardial or pleural effusion. Elevation of the left hemidiaphragm. Hepatic cyst susp ected in the left hepatic lobe. Fluid in the colon suggests a diarrheal state. Lungs and airways: No pneumothorax. Central airways patent. Pulmonary arteries are not significantly enlarged relative to adjacent bronchi. No interlobular septal thickening. Bandlike opacity at the lef t lung base consistent with atelectasis likely in the setting of left hemidiaphragm elevation. Musculoskeletal: Degenerative changes of the spine. IMPRESSION: 1. No evidence of pulmonary embolus. No acute intrathoracic pathology. 2. Minimal atelectasis related to the left hemidiaphragm elevation. 3. Fluid in the colon may suggest a diarrheal state. Electronically signed by: Joby Blackburn M.D. 01/07/2019 6:01 AM
[2019-01-07] MEDS ORDERED: ETODOLAC~ORDER AWAITING ACTION SCH (08:00)
[2019-01-07 08:33] LABS: Hemoglobin 13.1 g/dL (14.0-18.0); Mean Corpuscular Hgb Conc 34.5 g/dL (32-36); Mean Corpuscular Volume 95.7 fL (80-100); Mean Platelet Volume 9.9 fL (7.4-10.4); Platelet Count 386 K/uL (130-400); RDW Coefficient of Variation 12.9 % (11.5-14.5); RDW Standard Deviation 44.8 fL (36.4-46.3); Red Blood Count 3.97 M/uL (4.7-6.1); White Blood Count 8.91 K/uL (4.8-10.8)
[2019-01-07 08:42] LABS: Prothrombin Time 10.5 Seconds (9.0-12.0)
[2019-01-07] MEDS ORDERED: ENOXAPARIN INJ 40 MG/0.4 ML SYR SQ SCH (09:00)
[2019-01-07 09:05] LABS: Calcium 9.2 mg/dl (8.5-10.1); Creatinine Clr Calc Pharmacy 81.5 ml/min; Est GFR (African American) 94.1; Est GFR (Non-African American) 81.2; Potassium 3.5 mmol/L (3.5-5.1)
[2019-01-07 09:11] LABS: Basophils # (auto) 0.06 K/uL (0-0.2); Basophils % (auto) 0.7 %; Eosinophils # (auto) 0.14 K/uL (0-0.5); Eosinophils % (auto) 1.6 %; Immature Granulocytes # (auto) 0.46 K/uL (0.00-0.02); Immature Granulocytes % (auto) 5.2 %; Lymphocytes # (auto) 1.98 K/uL (1.2-3.4); Lymphocytes % (auto) 22.2 %; Monocytes # (auto) 1.11 K/uL (0.11-0.59); Monocytes % (auto) 12.5 %; Neutrophils # (auto) 5.16 K/uL (1.4-6.5); Neutrophils % (auto) 57.8 %
--- NOTE | 2019-01-07 11:43 | Hospitalist Progress Note ---
Date of Service January 07, 2019 Assessment & Plan (1) Tachycardia: Sinus tachycardia: Now HR in 80-90s Secondary to clinical dehydration with note of ketonuria, history postop ileus with recent right hip arthroplasty Was noted to be tachycardic with heart rate in 120s as per home health. Recent right hip arthroplasty on 12/26/2018 at [facility] complicated by postoperative ileus requiring NG tube insertion Was discharged on 01/04/2019 to home with home PT/OT services. Home health nurse also thought that he was more short of breath. Per patient he feels he is just deconditioned with surgery/postoperative course and being overweight. Denies any overt symptoms of shortness of breath, cough, fever, chills. No new symptoms. No signs of infection at incision site CT scan chestno PE or acute abnormality, minimal atelectasis to left hemidiaphragm elevation Recent right hip arthroplasty On 12/26/2018 at [facility] complicated by postoperative ileus requiring NG tube insertion. Discharged from [facility] on with [facility]/PT/OT No signs of infection at incision site Continue with home PT/OT services Hypokalemia Resolved Chronic diastolic dysfunction (EF 55-59, TTE 2017): No signs of exacerbation. Not on Lasix at home PAD as per records Prediabetes as per records (hemoglobin A1c of 6.2 last November 2018) Follicular lymphoma status post chemotherapy -Currently in remission Postop anemia Baseline of 12 from [facility] at time of discharge -Monitor H & H outpatient DVT PROPHYLAXIS Lobenox SQ - home rx as prescribed by orthopedics Full code Disposition Observation status Eager to be discharged Okay to discharge home today with continued PT/OT/home health services as prior to admission Subjective Patient is feeling well and eager to be discharged. Patient was sent here by home health as his heart rate was in 120s, possible shortness of breath. Per patient, he thought this was just deconditioning from his recent surgery and being overweight. Denies any shortness of breath, cough, chest pain, nausea, vomiting, abdominal pain, leg swelling. No fever, chills Eager to be discharged Tele metry- NSR in 80-90s Physical Exam Physical Exam: GENERAL- AAOX3, No acute distress LUNGS- Air entry bilaterally equal. No rales, rhonchi, crackles, wheezes heard. HEART- Regular rate and rhythm. No murmurs ABDOMEN- Soft, non tender, non distended, Bowel sounds heard. EXTREMITIES-status post right hip arthroplasty-incision site is healing well, no signs of infection Results & Data Vital Signs (Past 12 Hours) Vital Signs Temp Pulse Pulse Pulse Resp BP BP 01/07/19 10:50 36.5 C 95 H 16 112/73 01/07/19 08:00 88 01/07/19 07:05 36.8 C 89 18 132/77 01/07/19 03:09 99 H 22 01/07/19 02:15 100 H 27 H 01/07/19 02:00 98 H 26 H 01/07/19 01:45 106 H 22 01/07/19 01:31 108 H 23 140/85 01/07/19 01:30 109 H 19 01/07/19 01:15 108 H 20 01/07/19 01:00 110 H 20 01/07/19 00:45 116 H 114 H 20 120/82 01/07/19 00:30 01/07/19 00:25 116 H 17 120/82 01/07/19 00:24 120 H 26 H 01/06/19 23:45 101 H 16 01/06/19 23:43 105 H 12 Pulse Ox 01/07/19 10:50 94 01/07/19 08:00 01/07/19 07:05 94 01/07/19 03:09 94 01/07/19 02:15 01/07/19 02:00 01/07/19 01:45 01/07/19 01:31 01/07/19 01:30 01/07/19 01:15 01/07/19 01:00 01/07/19 00:45 97 01/07/19 00:30 93 01/07/19 00:25 95 01/07/19 00:24 01/06/19 23:45 93 01/06/19 23:43 95
--- NOTE | 2019-01-07 11:56 | Discharge Summary ---
Date of Service January 07, 2019 Admission HPI Per Admitting Provider History obtained from patient and records. Medical history significant for chronic diastolic dysfunction (EF 55-59, TTE 2017), PAD, prediabetes as per records, follicular lymphoma status post chemotherapy, past tobacco abuse. Recent confinement [facility] from December 26 to January 04, 2018 for right hip arthroplasty. Postop patient had traumatic urinary Muir catheterization complications. Patient also developed bowel ileus status post NGT insertion. Yesterday, patient noted by home health nurse to be tachycardic cardiac rate 120s. Patient denies chest pain, abdominal pain, cough, diarrhea, dysuria, fever, chills. Exertional S OB with moving around from recent right hip surgery as per patient. Appetite was not too good after ileus event in the hospital as per patient. Principal Diagnosis 1. Sinus tachycardia, likely clinical dehydration 2. Recent right hip arthroplasty 3. Hypokalemia 4. Post op anemia Secondary diagnoses on discharge 1. Chronic diastolic dysfunction 2. Prediabetes 3. Follicular lymphoma in remission Discharge Exam GENERAL- AAOX3, No acute distress LUNGS- Air entry bilaterally equal. No rales, rhonchi, crackles, wheezes heard. HEART- Regular rate and rhythm. No murmurs ABDOMEN- Soft, non tender, non distended, Bowel sounds heard. EXTREMITIES-status post right hip arthroplasty-incision site is healing well, no signs of infection Discharge Data Allergies Allergy/AdvReac Type Severity Reaction Status Date / Time No Known Allergies Allergy Verified 01/07/19 02:06 Consultations 01/07/19 00:59 ED Decision to Admit Stat Ordered Studies 01/06/19 22:44 CT angio chest PE protocol Urgent Hospital Course (1) Tachycardia: Sinus tachycardia: Now HR in 80-90s Secondary to clinical dehydration with note of ketonuria, history postop ileus with recent right hip arthroplasty Was noted to be tachycardic with heart rate in 120s as per home health. Recent right hip arthroplasty on 12/26/2018 at [facility] complicated by postoperative ileus requiring NG tube insertion Was discharged on 01/04/2019 to home with home PT/OT services. Home health nurse also thought that he was more short of breath. Per patient he feels he is just deconditioned with surgery/postoperative course and being overweight. Denies any overt symptoms of shortness of breath, cough, fever, chills. No new symptoms. No signs of infection at incision site CT scan chestno PE or acute abnormality, minimal atelectasis to left hemidiaphragm elevation Recent right hip arthroplasty On 12/26/2018 at [facility] complicated by postoperative ileus requiring NG tube insertion. Discharged from [facility] on with [facility]/PT/OT No signs of infection at incision site Continue with home PT/OT services Hypokalemia Resolved Chronic diastolic dysfunction (EF 55-59, TTE 2017): No signs of exacerbation. Not on Lasix at home PAD as per records Prediabetes as per records (hemoglobin A1c of 6.2 last November 2018) Follicular lymphoma status post chemotherapy -Currently in remission Postop anemia Baseline of 12 from [facility] at time of discharge -Monitor H & H outpatient DVT PROPHYLAXIS Lobenox SQ - home rx as prescribed by orthopedics Full code Disposition Observation status Eager to be discharged Okay to discharge home today with continued PT/OT/home health services as prior to admission Total Time Total Time Spent Total Time Spent (In Minutes): 20 minutes Discharge Plan Discharge Items Patient Disposition: Home - Home Health Services Reason For Visit: TACHYCARDIA Discharge Diagnosis: Sinus tachycardia likely dehydration Condition: Fair Discharge Goals: Decrease discomfort Activity: Resume your previous activity Activity Comment: INSTRUCTED BY ORTHOPEDICS - PT/OT FOR RIGHT HIP ARTHROPLASTY Non-emergency contact: Primary Care Provider Call non-emergency contact if: your symptoms worsen Follow-up/Referrals: Philip Chahal MD [Primary Care Provider] - (We will call you for 1 week hospital follow up visit appt date and time as scheduling office is closed today ) Diet: Carb Consistent or DM2, Low Fat and Low Sodium (2gm) Addtl Provider Instructions: MEDICATION CHANGES: -None -Continue with Lovenox SQ as instructed by orthopedics for DVT prophylaxis on discharge from [facility] Follow up with orthopedics as instructed on discharge from [facility] Prescriptions: Continued etodolac 500 mg tablet extended release 24 hr 1,000 mg PO DAILY RF: 0 oxycodone-acetaminophen 5-325 mg tablet 1 tab PO Q4 PRN (Reason: moderate pain) RF: 0 Stand-Alone Forms: [place] 3D Discharge Orders: Discharge Order (Routine); Ordered 01/07/19 Ordered By: Stacy Parker Admission Data Admit Date/Time: 01/07/19 02:32 Attending Provider: Stacy Parker Admit Provider: Elvin Teixeira Primary Care Provider: Philip Chahal Other Providers: Elvin Teixeira Service: Telemetry Medical
== END 2019-01-07 14:17 | disposition home health service (06) ==
LOC: 2N 22:02 → ED 22:02 → 2N 01-07 03:09

== ENCOUNTER 2020-05-17 17:13 | Inpatient (IN) ==
[2020-05-17] MEDS ORDERED: SODIUM CHLORIDE 0.9% 1000ML 1,000 ML IV ONE (18:21)
[2020-05-17] MEDS ORDERED: ONDANSETRON INJ 2 MG/ML 2 ML VIAL IV STA (18:21)
[2020-05-17] MEDS ORDERED: HYDROmorphone INJ 0.5 MG/0.5 ML SYR IV PRN (18:21)
[2020-05-17 18:27] LABS: Basophils # (auto) 0.01 K/uL (0-0.2); Basophils % (auto) 0.1 %; Hematocrit (blood only) 47.7 % (42-52); Hemoglobin 16.4 g/dL (14.0-18.0); Immature Granulocytes # (auto) 0.03 K/uL (0.00-0.02); Immature Granulocytes % (auto) 0.3 %; Lymphocytes # (auto) 0.77 K/uL (1.2-3.4); Mean Corpuscular Hgb Conc 34.4 g/dL (32-36); Mean Platelet Volume 10.3 fL (7.4-10.4); Monocytes # (auto) 0.59 K/uL (0.11-0.59); Monocytes % (auto) 5.4 %; Neutrophils # (auto) 9.55 K/uL (1.4-6.5); Neutrophils % (auto) 87.2 %; Platelet Count 211 K/uL (130-400); RDW Coefficient of Variation 12.9 % (11.5-14.5); RDW Standard Deviation 44.7 fL (36.4-46.3); Red Blood Count 4.97 M/uL (4.7-6.1); White Blood Count 10.95 K/uL (4.8-10.8)
--- NOTE | 2020-05-17 18:32 | Emergency Department Note ---
Impression & Plan Generalized abdominal pain, Tachycardia ED Provider Note INFORMANT: Patient ED PROVIDER(S): Joe Topete MD CHIEF COMPLAINT: Abdominal pain PLAN: Disposition: Admitted Condition: Good MEDICAL DECISION MAKING: Patient presented with significant generalized abdominal pain. He had peritoneal findings on examination. He was tachycardic. ECG was performed and showed sinus tachycardia. He was hydrated. He was given Dilaudid and Zofran for symptom control. He was emergently sent to CT imaging to further elucidate the cause of his severe abdominal pain. Lactate was within normal limits. The patient was reassessed. He was feeling better with the Dilaudid and Zofran. CT imaging was concerning for acute appendicitis. He did have a mild leukocytosis. The patient was given IV Mefoxin. He was educated. Rest of his laboratory testing was unremarkable. I did place a consultation with Dr. Napier of general surgery. He did evaluate the patient in the ER and admitted him to the operative suite for further intervention. Triage Nursing notes reviewed and agree them. Vital Signs: reviewed and remarkable for tachycardia Differential diagnosis: Appendicitis, testicular torsion, infections, diverticulitis, UTI, obstruction, mesenteric ischemia, aortic pathology, inflammatory bowel disease, renal colic, PUD, pancreatitis, biliary pathology, hernia, volvulus, constipation, as well as other pathologies. Diagnostics interpreted by me: ECG: Rate: 137 Rhythm: Sinus tachycardia [place]:Normal QRS:Normal ST segements:No elevation or depression Other:No PACs or PVCs Cardiac Monitoring: Cardiac monitoring ordered by me: The patient was placed on continuous cardiac monitoring and observed. It revealed a tachycardia at 115 beats per minute without ectopy or evidence of dysrhythmia. Imaging studies: CT scan of the abdomen pelvis was performed and revealed acute appendicitis without perforation or abscess. I refer to the EMR for further details. Consultation(s): General surgery HPI: The patient is a 74 year old male who presents to the Emergency Room with complaints of generalized abdominal pain. This started 3 days ago and is worsening, sharp and worse with movement. The patient also notes the following associated symptoms, chills and fevers. The patient has found no relieving factors. He has tried aspirin. Current pain is rated as 10/10. Patient has history of kidney stones, gallbladder surgery, and hernia repair. Pt denies LOC, headache, diaphoresis, visual changes, neck pain, chest pain, breathing difficulties, nausea, vomiting, back pain, melena, hematochezia, urinary symptoms, numbness, weakness, lymphadenopathy, rash, or other complaints. ROS: See above HPI for pertinent positives & negatives. A total of 10 systems re viewed and were otherwise negative. PAST MEDICAL HISTORY:See Below, kidney stone PAST SURGICAL HISTORY:See Below, cholecystectomy, hernia repair, colonoscopy FAMILY HISTORY:See Below SOCIAL HISTORY:See Below, retired HOME MEDICATIONS:See Below ALLERGIES:See Below VITALS:See Below PHYSICAL EXAMINATION: GENERAL: Awake, alert, very uncomfortable-appearing, in my distress HENT: Normocephalic, atraumatic. Oropharynx unremarkable. EYES: Normal conjunctiva. Sclera non-icteric. NECK: Inspection normal. Non-tender. Supple. No nuchal rigidity. FROM. No masses. RESPIRATORY: Clear to auscultation. No wheezes. No rales. Normal respiratory effort. CARDIAC: Normal rate. Normal rhythm. No murmurs. No rubs. Extremities warm and well perfused. Pulses equal. No JVD. GI: Soft, mild-distended. Significant tenderness to palpation. Positive for rebound and guarding. No masses. RECTAL: Deferred. MUSCULOSKELETAL: Atraumatic. Chest examination reveals no tenderness. The back is symmetrical on inspection without obvious abnormality. There is no CVA tenderness to palpation. No joint edema. LOWER EXTREMITIES: Calves are equal size bilaterally and non-tender. No edema. No discoloration. NEURO: Normal sensorium. No sensory or motor deficits noted. SKIN: No rash or jaundice noted. Joe Topete MD Past Med/Surg History Surgical History History of hip replacement Social History Smoking Status: Never smoker Second Hand Exposure: No; Do You Dip or Chew Tobacco: No; Tobacco Cessation Education Requested by Patient: No Hx Alcohol Use: Yes Alcohol type: beer Hx Substance Use: No Preferred Language: Libyan Communication Ability: Effective Secondary Spanish Teacher Required: No Beliefs That Will Affect Care: None Current Living Situation: Alone Other Information That Helps Us Care for You: No Feels Safe at Home: Yes Safety Concerns: Feels Safe At This Time Assistive Devices: Oxygen - Continuous Allergies Allergies Allergy/AdvReac Type Severity Reaction Status Date / Time No Known Allergies Allergy Verified 05/17/20 19:43 Home Meds Home Medications Medication Instructions Recorded Confirmed aspirin 325 mg PO ONCE 05/17/20 05/17/20 Results & Data (ED) Vital Signs Vital Signs - 24 hr 05/17/20 17:41 05/17/20 18:13 05/17/20 18:26 Temperature 37.5 C Temperature Source Oral Pulse Rate 142 H 132 H 129 H Pulse Rate from SpO2 Sensor 132 H 130 H Pulse Rhythm Regular Pulse Strength Normal Respiratory Rate 20 27 H 23 Respiratory Effort / Characteristics Non-Labored Spontaneous Respiratory Depth Normal Respiratory Pattern Regular Blood Pressure 134/76 107/74 Blood Pressure Mean 95 86 Blood Pressure Position Sitting Pulse Oximetry 92 95 94 Oxygen Delivery Method Room Air Sepsis Recent Fever Within 48 Hours Yes Sepsis New/Unexplained Change in Mental Status No Sepsis Action Taken by Nursing No Action Required 05/17/20 18:30 05/17/20 19:13 05/17/20 19:30 Temperature Temperature Source Pulse Rate 123 H 116 H 116 H Pulse Rate from SpO2 Sensor 116 H 119 H Pulse Rhythm Pulse Strength Respiratory Rate 21 19 Respiratory Effort / Characteristics Respiratory Depth Respiratory Pattern Blood Pressure Blood Pressure Mean Blood Pressure Position Pulse Oximetry 96 95 Oxygen Delivery Method Sepsis Recent Fever Within 48 Hours Sepsis New/Unexplained Change in Mental Status Sepsis Action Taken by Nursing 05/17/20 19:39 05/17/20 20:00 05/17/20 20:01 Temperature Temperature Source Pulse Rate 119 H 115 H 116 H Pulse Rate from SpO2 Sensor 118 H 116 H 115 H Pulse Rhythm Pulse Strength Respiratory Rate 26 H 31 H 29 H Respiratory Effort / Characteristics Respiratory Depth Respiratory Pattern Blood Pressure 137/87 113/72 Blood Pressure Mean 110 96 Blood Pressure Position Pulse Oximetry 95 96 96 Oxygen Delivery Method Sepsis Recent Fever Within 48 Hours Sepsis New/Unexplained Change in Mental Status Sepsis Action Taken by Nursing Laboratory Data Result diagrams: 05/17/20 18:07 05/17/20 18:07 Lab Results 05/17/20 05/17/20 05/17/20 Range/Units 18:07 18:07 18:12 WBC 10.95 H (4.8-10.8) K/uL RBC 4.97 (4.7-6.1) M/uL Hgb 16.4 (14.0-18.0) g/dL Hct 47.7 (42-52) % MCV 96.0 (80-100) fL MCH 33.0 (25-34) pg MCHC 34.4 (32-36) g/dL RDW Std Deviation 44.7 (36.4-46.3) fL RDW Coeff of Briana 12.9 (11.5-14.5) % Plt Count 211 (130-400) K/uL MPV 10.3 (7.4-10.4) fL Immature Gran % (Auto) 0.3 % Neut % (Auto) 87.2 % Lymph % (Auto) 7.0 % [place] % (Auto) 5.4 % Eos % (Auto) 0.0 % Baso % (Auto) 0.1 % Neut # (Auto) 9.55 H (1.4-6.5) K/uL Lymph # (Auto) 0.77 L (1.2-3.4) K/uL [place] # (Auto) 0.59 (0.11-0.59) K/uL Eos # (Auto) 0.00 (0-0.5) K/uL Baso # (Auto) 0.01 (0-0.2) K/uL Immature Gran # (Auto) 0.03 H (0.00-0.02) K/uL Sodium 136 (136-145) mmol/L Potassium 4.0 (3.5-5.1) mmol/L Chloride 104 (98-107) mmol/L Carbon Dioxide 24 (21-32) mmol/L Anion Gap 8.0 (3-11) BUN 19 H (7-18) mg/dl Creatinine 1.28 (0.6-1.4) mg/dl Est Cr Clr Drug Dosing 58.0 ml/min Est GFR ( Amer) 63.5 Est GFR (Non-Af Amer) 54.8 BUN/Creatinine Ratio 14.8 (10-20) Glucose 129 H (70-99) mg/dl POC Lactic Acid Saul 1.64 (0.90-1.70) mmol/L Calcium 9.5 (8.5-10.1) mg/dl Total Bilirubin 0.9 (0.2-1) mg/dl AST 11 L (15-37) U/L ALT 21 (12-78) U/L Alkaline Phosphatase 67 (45-117) U/L Total Protein 7.8 (6.4-8.2) gm/dl Albumin 3.9 (3.4-5.0) gm/dl Globulin 3.9 (2.5-4.0) gm/dl Albumin/Globulin Ratio 1.0 (0.9-2) Lipase 119 (73-393) U/L SARS-CoV-2 Ag (Rapid) (Negative) 05/17/20 Range/Units 19:50 WBC (4.8-10.8) K/uL RBC (4.7-6.1) M/uL Hgb (14.0-18.0) g/dL Hct (42-52) % MCV (80-100) fL MCH (25-34) pg MCHC (32-36) g/dL RDW Std Deviation (36.4-46.3) fL RDW Coeff of Briana (11.5-14.5) % Plt Count (130-400) K/uL MPV (7.4-10.4) fL Immature Gran % (Auto) % Neut % (Auto) % Lymph % (Auto) % [place] % (Auto) % Eos % (Auto) % Baso % (Auto) % Neut # (Auto) (1.4-6.5) K/uL Lymph # (Auto) (1.2-3.4) K/uL [place] # (Auto) (0.11-0.59) K/uL Eos # (Auto) (0-0.5) K/uL Baso # (Auto) (0-0.2) K/uL Immature Gran # (Auto) (0.00-0.02) K/uL Sodium (136-145) mmol/L Potassium (3.5-5.1) mmol/L Chloride (98-107) mmol/L Carbon Dioxide (21-32) mmol/L Anion Gap (3-11) BUN (7-18) mg/dl Creatinine (0.6-1.4) mg/dl Est Cr Clr Drug Dosing ml/min Est GFR ( Amer) Est GFR (Non-Af Amer) BUN/Creatinine Ratio (10-20) Glucose (70-99) mg/dl POC Lactic Acid Saul (0.90-1.70) mmol/L Calcium (8.5-10.1) mg/dl Total Bilirubin (0.2-1) mg/dl AST (15-37) U/L ALT (12-78) U/L Alkaline Phosphatase (45-117) U/L Total Protein (6.4-8.2) gm/dl Albumin (3.4-5.0) gm/dl Globulin (2.5-4.0) gm/dl Albumin/Globulin Ratio (0.9-2) Lipase (73-393) U/L SARS-CoV-2 Ag (Rapid) Negative (Negative) Administered Medications Lactated Ringer's (Lr) 1,000 mls @ 100 mls/hr IV .Q10H VALE Stop: 06/16/20 23:32 Last Admin: 05/18/20 00:00 Dose: 100 mls/hr Documented by: [id number] Acetaminophen (Ofirmev) 1,000 mg in 100 mls @ 400 mls/hr IV Q8H VALE Stop: 05/21/20 00:00 Last Infusion: 05/18/20 00:11 Dose: 0 mls/hr Documented by: [id number] Admin: 05/17/20 23:56 Dose: 400 mls/hr Documented by: [id number] Discontinued Medications Bupivacaine HCl (Bupivacaine 0.25% 30 Ml Vial) Confirm Administered Dose 30 ml .ROUTE .STK-MED ONE Stop: 05/17/20 20:21 Last Admin: 05/17/20 22:20 Dose: 30 ml Documented by: [id number] Epinephrine HCl (Epinephrine Inj 1 Mg/Ml Amp) Confirm Administered Dose 1 mg .ROUTE .STK-MED ONE Stop: 05/17/20 20:21 Last Admin: 05/17/20 22:18 Dose: 0.15 mg Documented by: [id number] Hydromorphone HCl (Hydromorphone Inj 0.5 Mg/0.5 Ml Syr) 0.5 mg IV Q15M PRN PRN Reason: Pain Stop: 05/31/20 18:20 Last Admin: 05/17/20 18:34 Dose: 0.5 mg Documented by: [id number] Sodium Chloride (Nss 1000ml) 1,000 mls @ 999 mls/hr IV .Q1H1M ONE Stop: 05/17/20 19:21 Last Infusion: 05/17/20 23:33 Dose: 0 mls/hr Documented by: [id number] Infusion: 05/17/20 20:09 Dose: 0 mls/hr Documented by: [id number] Admin: 05/17/20 18:34 Dose: 999 mls/hr Documented by: [id number] Sodium Chloride (Nss 1000ml) 1,000 mls @ 125 mls/hr IV .Q8H VALE Stop: 06/16/20 19:29 Last Infusion: 05/18/20 00:00 Dose: 0 mls/hr Documented by: [id number] Infusion: 05/17/20 23:33 Dose: 0 mls/hr Documented by: [id number] Admin: 05/17/20 20:09 Dose: 125 mls/hr Documented by: [id number] Cefoxitin Sodium 2,000 mg/ (Dextrose) 60 mls @ 120 mls/hr IV NOW STA Stop: 05/17/20 20:38 Last Infusion: 05/17/20 22:00 Dose: 0 mls/hr Documented by: [id number] Admin: 05/17/20 21:30 Dose: 120 mls/hr Documented by: [id number] Piperacillin Sod/Tazobactam (Sod 4.5 gm/ Dextrose) 120 mls @ 200 mls/hr IV NOW ONE; Protocol Stop: 05/18/20 00:35 Last Infusion: 05/18/20 00:31 Dose: 0 mls/hr Documented by: [id number] Admin: 05/17/20 23:55 Dose: 200 mls/hr Documented by: [id number] Ondansetron HCl (Ondansetron Inj 2 Mg/Ml 2 Ml Vial) 4 mg IV NOW STA Stop: 05/17/20 18:22 Last Admin: 05/17/20 18:34 Dose: 4 mg Documented by: [id number] Discharge Plan Visit Data Chief Complaint: Abdominal Pain Stated Complaint: ABD PAIN ED Provider: Joe Topete Discharge Problem: Generalized abdominal pain, Tachycardia Patient Disposition: Admitted As Inpatient Discharge Instructions Interventions: ED Discharge Assessment Last Done: 05/17/20 20:29
[2020-05-17 18:54] LABS: Albumin Level 3.9 gm/dl (3.4-5.0); BUN Creatinine Ratio 14.8 (10-20); Calcium 9.5 mg/dl (8.5-10.1); Est GFR (African American) 63.5; Est GFR (Non-African American) 54.8
[2020-05-17 18:57] LABS: Bilirubin,Total 0.9 mg/dl (0.2-1); Globulin 3.9 gm/dl (2.5-4.0); Total Protein 7.8 gm/dl (6.4-8.2)
--- NOTE | 2020-05-17 19:04 | CT Scan Report ---
CT SCAN OF THE ABDOMEN AND PELVIS WITHOUT IV CONTRAST CLINICAL HISTORY: Generalized abdominal pain. COMPARISON STUDY: Pelvic CT dated 07/26/2016. TECHNIQUE: CT scan of the abdomen and pelvis is performed from the lung bases to the proximal femora. Images are reviewed in the axial, sagittal, and coronal planes. IV contrast was not administered for this examination. Note that the examination was performed in significant suboptimal fashion without oral and IV contrast. A dose lowering technique was utilized adhering to the principles of ALARA. CT DOSE: 1342.52 mGy.cm FINDINGS: Lung bases: The heart is normal in size and without pericardial effusion. There is lipomatous hypertr ophy of the interatrial septum. Mild bronchiectasis is noted at the lung bases. There is bibasilar sc arring/atelectasis. No airspace consolidation or pleural effusion is identified. There is a small hia sebastien hernia. Liver: The unenhanced liver is normal in size and contour. The liver demonstrates diffusely diminishe d attenuation consistent with mild steatosis. There is no intrahepatic biliary ductal dilatation. The re is a 1.9 cm cyst in the left lobe. Gallbladder: Unremarkable. Spleen: Normal in size and attenuation. Pancreas: The unenhanced pancreas is mildly atrophic and grossly unremarkable. Adrenal glands: Unremarkable. Kidneys: The unenhanced kidneys are atrophic and without hydronephrosis. There is a punctate nonobstr ucting right renal calculus. No left renal calculi are identified. Bilateral renal cysts measure up t o 3.3 cm. Additional subcentimeter renal hypodensities also likely represent cysts but are too small for definitive characterization. Abdominal vasculature: The abdominal aorta is normal in course and caliber noting moderate to advance d atherosclerotic calcification. Bowel: No bowel obstruction is seen. There is advanced colonic diverticulosis. Inflammatory change is identified in the right lower quadrant between a loop of the sigmoid colon and the appendix/cecum as seen on image #[id number]. The appendix is mildly distended and fluid-filled, measuring up to 9 mm diameter . Acute appendicitis is favored with diverticulitis considered less likely. No organized fluid collec tion is seen to suggest abscess.. Peritoneum: There is no intraperitoneal free air or abdominal ascites. Nonspecific mesenteric hazines s is unchanged from the 2017 examination. Lymphadenopathy: None. Pelvic viscera: Evaluation of the pelvis is degraded by streak artifact from a right hip arthroplasty . The prostate gland is enlarged and heterogeneous. The bladder is decompressed and grossly unremarka ble. There are bilateral fat-containing inguinal hernias. Skeletal structures: The skeletal structures are osteopenic. There is moderate to advanced sacral spo ndylosis. No lytic or blastic lesions are seen. IMPRESSION: 1. There is an inflammatory process in the right lower quadrant between the appendix/cecum and a loop of the sigmoid colon. Although there is advanced diverticular disease of the colon, the appendix is abnormal in appearance and acute appendicitis is strongly favored over diverticulitis. Surgical consu ltation is advised. 2. No intraperitoneal free air is seen and there is no evidence of abscess. 3. Right-sided nephrolithiasis. 4. Hepatic steatosis. 5. Additional findings as above. ACT 112: Negative or not required by law. Electronically signed by: Salvatore Miles M.D. 05/17/2020 7:02 PM
[2020-05-17] MEDS ORDERED: cefOXitin 2,000 MG/60 ML BAG IV STA (19:19)
[2020-05-17] MEDS ORDERED: SODIUM CHLORIDE 0.9% 1000ML 1,000 ML IV SCH (19:30)
[2020-05-17] MEDS ORDERED: cefOXitin 2,000 MG in DEXTROSE 5% 50 ML IV STA (20:09)
[2020-05-17] MEDS ORDERED: BUPIVACAINE 0.25% 30 ML VIAL ONE (20:20)
[2020-05-17] MEDS ORDERED: EPINEPHrine INJ 1 MG/ML AMP ONE (20:20)
--- NOTE | 2020-05-17 20:25 | History & Physical Report ---
Date of Service May 17, 2020 Assessment & Plan (1) Acute appendicitis: -Admit to surgery -Keep NPO -IV ABX -To OR tonight for laparoscopic appendectomy, possible open -Consent obtained, risks discussed including bleeding, infection, leak, abscess, injury to nearby structures Present on Admission?: Yes History of Present Illness Chief Complaint: Abdominal pain Primary Care Provider: Philip Chahal MD This is a 74 yo male who presents with 2 days of sharp lower abdominal pain without radiation, slightly improved with ASA. He denies any fevers or chills. No N/V. No melena or hematochezia. No constipation or diarrhea. No dysuria. Allergies Allergy/AdvReac Type Severity Reaction Status Date / Time No Known Allergies Allergy Verified 05/17/20 19:43 Home Medications Medication Instructions Recorded Confirmed Type aspirin 325 mg PO ONCE 05/17/20 05/17/20 History Past Med/Surg History Surgical History History of hip replacement Social History Smoking Status: Former smoker Hx Substance Use: No Preferred Language: Scottish Communication Ability: Effective Beliefs That Will Affect Care: None Current Living Situation: Family Feels Safe at Home: Yes Assistive Devices: Cane Review of Systems Constitutional: no fever and no chills Eyes: no blind spots, no diplopia and no worsening vision Ear, Nose, Mouth, Throat: no ear pain and no ear trauma Respiratory: no cough and no dyspnea Cardiovascular: no chest pain and no dyspnea Gastrointestinal: + abdominal pain; no bloating, no nausea, no vomiting, no constipation, no diarrhea/loose stools, no blood in stools and no melena Genitourinary: no dysuria and no urinary frequency Musculoskeletal: no back pain and no neck pain Integumentary: no changing lesions, no skin ulcer and no sores Neurologic: no falls, no headache(s) and no confusion Psychiatric: no behavioral changes and no depression Hematologic / Lymphatic: no easy bleeding and no easy bruising Physical Exam Constitutional: WD/WN, vitals as above Eyes: PERRL, conjunctivae normal, anicteric sclerae ENMT: external ear and nose normal, oropharynx normal Neck: trachea midline, no thyromegaly Respiratory: normal respiratory effort, lungs clear to auscultation Cardiovascular: Rate/Rhythm: regular rhythm and + tachycardic Gastrointestinal (Abdomen): Inspection/Auscultation: abdomen not distended Percussion/Palpation: + abdomen tender (RLQ), + guarding (RLQ) and abdomen soft; abdomen not rigid Musculoskeletal: no cyanosis or clubbing, extremities motor strength 5/5 Skin: no rashes, warm and dry Neurologic: PERRL, EOMI, accommodation nl, no face palsy, no dysarthria Psychiatric: A+Ox3, euthymic affect Results & Data Results & Data ([facility]) Vital Signs (Past 12 Hours) Vital Signs Temp Pulse Resp BP Pulse Ox 05/17/20 20:01 116 H 29 H 96 05/17/20 20:00 115 H 31 H 113/72 96 05/17/20 19:39 119 H 26 H 137/87 95 05/17/20 19:30 116 H 95 05/17/20 19:13 116 H 19 96 05/17/20 18:30 123 H 21 05/17/20 18:26 129 H 23 94 05/17/20 18:13 132 H 27 H 107/74 95 05/17/20 17:41 37.5 C 142 H 20 134/[address] A/P 05/17/20 IMPRESSION: 1. There is an inflammatory process in the right lower quadrant between the appendix/cecum and a loop of the sigmoid colon. Although there is advanced diverticular disease of the colon, the appendix is abnormal in appearance and acute appendicitis is strongly favored over diverticulitis. Surgical consultation is advised. 2. No intraperitoneal free air is seen and there is no evidence of abscess. 3. Right-sided nephrolithiasis. 4. Hepatic steatosis. 5. Additional findings as above. Diagnostic Findings CT A/P 05/17/20 IMPRESSION: 1. There is an inflammatory process in the right lower quadrant between the appendix/cecum and a loop of the sigmoid colon. Although there is advanced diverticular disease of the colon, the appendix is abnormal in appearance and acute appendicitis is strongly favored over diverticulitis. Surgical consultation is advised. 2. No intraperitoneal free air is seen and there is no evidence of abscess. 3. Right-sided nephrolithiasis. 4. Hepatic steatosis. 5. Additional findings as above. PG Care Time/CCT Total # of Minutes Spent Total Time Spent with Patient: Total time spent is greater than 50% in coordination of care (as documented) at patient's floor/unit and/or counseling patient: Coding Level of Care Code 71921 Initial Inpt Care Lvl 2 Diagnoses Acute appendicitis K35.80 Acute appendicitis type: with localized peritonitis (1) Acute appendicitis Acute appendicitis type: with localized peritonitis
--- NOTE | 2020-05-17 20:50 | Anesthesiology Consultation ---
Date of Service May 17, 2020 Assessment & Plan (1) Encounter for pre-operative examination: Chart Review Chart Review: Acceptable Risk for Surgery and Patient NOT seen in Pre Admission Testing Consults Requested none ASA [id number] Proposed Anesthesia Anesthesia Type: General Risk / Benefits Reviewed With: PT / POA / Parent / Guardian, Accepts Plan and Informed Consent Obtained History Surgery Operation Date: 05/17/20 20:30 Proposed Procedures p Laparoscopic Appendectomy, Possible Open(Not Applicable) - Jorge A Napier, DO Height/Weight Height: 5 ft 7 in Weight: 103.4 kg Allergies Allergy/AdvReac Type Severity Reaction Status Date / Time No Known Allergies Allergy Verified 05/17/20 19:43 Medications Home Medications Medication Instructions Recorded Confirmed Last Taken aspirin 325 mg PO ONCE 05/17/20 05/17/20 05/17/20 Active Medications Generic Name Dose Route Start Last Admin Trade Name Freq PRN Reason Stop Dose Admin Hydromorphone HCl 0.5 mg 05/17/20 18:21 05/17/20 18:34 Hydromorphone Inj 0.5 Mg/0.5 Ml Syr IV 05/31/20 18:20 0.5 mg Q15M PRN Administration Pain Sodium Chloride 1,000 mls @ 125 mls/hr 05/17/20 19:30 05/17/20 20:09 Nss 1000ml IV 06/16/20 19:29 125 mls/hr .Q8H VALE Administration NPO Date Last Intake of Fluids: 05/17/20 Time Last Intake of Fluids: 06:00 Date Last Intake of Solids: 05/17/20 Time Last Intake of Solids: 06:00 Exercise / Class Metabolic Activity II 4-5 Yardwork/Stairs/Walk up hill Past Surgical History Surgical History History of hip replacement Past Anesthesia History No Hx of Anesthesia Complications and No Family Hx of Anesthesia Complications History of PONV No Hx of PONV and No Hx of Motion Sickness Social History Smoking Status: Former smoker Hx Substance Use: No substance use type: does not use Physical Exam Vital Signs Last Vital Signs Temp 37.5 C 05/17/20 17:41 Pulse 116 H 05/17/20 20:01 Resp 29 H 05/17/20 20:01 BP 113/72 05/17/20 20:00 Pulse Ox 96 05/17/20 20:01 ENMT Mouth: no dentition abnormality Thyromental Distance: > or= 3.5 Finger Breadths Mallampati Class: II Neck normal visual inspection Respiratory normal respiratory effort Auscultation: lungs clear to auscultation bilaterally Cardiovascular Rate/Rhythm: regular rate and regular rhythm Psychiatric Orientation: alert Testing Laboratory Results 05/17/20 18:07 05/17/20 18:07
[2020-05-17] MEDS ORDERED: SUCCINYLCHOLINE CHLORIDE 20 MG/ML 10 ML VIAL IV ONE (20:57)
[2020-05-17] MEDS ORDERED: PROPOFOL IV EMULSION 10 MG/ML 20 ML VIAL IV ONE (20:57)
[2020-05-17] MEDS ORDERED: LIDOCAINE HCL 2% 2 ML VIAL/AMP(20MG/ML) INFIL ONE (20:57)
[2020-05-17] MEDS ORDERED: fentaNYL citrate 100 MCG/2 ML VIAL ONE ×2 (20:58→21:52)
[2020-05-17] MEDS ORDERED: ROCURONIUM BROMIDE 10 MG/ML 5 ML VIAL IV ONE (22:22)
[2020-05-17] MEDS ORDERED: NEOSTIGMINE METHYLSULFATE 5 MG/5 ML SYR ONE (22:22)
[2020-05-17] MEDS ORDERED: KETOROLAC 30 MG/ML VIAL ONE (22:22)
[2020-05-17] MEDS ORDERED: ONDANSETRON INJ 2 MG/ML 2 ML VIAL ONE (22:22)
[2020-05-17] MEDS ORDERED: GLYCOPYRROLATE 0.2 MG/ML VIAL ONE (22:22)
--- NOTE | 2020-05-17 23:02 | Post Operative Brief Note ---
PG Immediate Post Op with CF Date of Surgery May 17, 2020 Pre & Post Diagnosis Operation Date: 05/17/20 20:30 Pre-Op Diagnosis: Acute APPENDICITIS Post-Op Diagnosis: Acute APPENDICITIS with perforation and peritonitis I identified the patient and participated in the time-out.: Yes Procedure Operation Date: 05/17/20 20:30 Actual Procedures p Laparoscopic Appendectomy(Not Applicable) - Jorge A Napier DO Surgeon Jorge A Napier DO Stone Breaker Andrey Qureshi PA-C Estimated Blood Loss 5 Findings See Below Acute gangrenous appendicitis with perforation and peritonitis Fluids 1000mL Specimens Specimen Description: A. appendix Drains Muir Catheter and Luis Alberto-Salvador Drain Anesthesia Type General Complications none Disposition Disposition: Recovery Room
--- NOTE | 2020-05-17 23:08 | Operative Report ---
PG Post Operative Report Pre & Post Diagnosis Operation Date: 05/17/20 20:30 Pre-Op Diagnosis: Acute APPENDICITIS Post-Op Diagnosis: Acute APPENDICITIS with perforation and peritonitis I identified the patient and participated in the time-out.: Yes Procedure Operation Date: 05/17/20 20:30 Actual Procedures p Laparoscopic Appendectomy(Not Applicable) - Jorge A Napier DO Surgeon Jorge A Napier DO Curer Foam Rubber Andrey Qureshi PA-C Estimated Blood Loss 5 Findings See Below Gangrenous perforated appendix with peritonitis Fluids 1000ml crystalloid Specimens Appendix to pathology Drains 19 Fr Jorge A drain in RLQ Anesthesia Type General Complications none Disposition Disposition: Recovery Room Indications 74 yo male with 2-3 days of abdominal pain and CT evidence of acute appendicitis Description of Procedure The patient was brought to the OR and placed in the supine position and SCD's placed. At this time he underwent general endotracheal anesthesia without incident. At this time a Muir catheter was placed under sterile conditions. His abdomen was prepped and draped in the usual sterile fashion. He was given appropriate pre-operative antibiotics. A timeout was called, the procedure was verified as Laparoscopic appendectomy, possible open. Surgical, anesthesia and nursing teams agreed and the procedure was begun. After injection of 0.25% Marcaine with epinephrine, a supraumbilical incision was made using a #11 blade scalpel and carried down to the fascia with a hemostat. The abdomen was then elevated with towel clamps and entered using the Veress needle confirming position using the saline drop test. Pneumoperitoneum was established and 5mm trocar was placed. Laparoscope was introduced. No injury was seen from our entrance to the abdomen. At this time a 5mm suprapubic port and 12mm LLQ port were placed under direct visualization. The patient was placed in Trendelenburg and rotated to the left. Purulent fluid was immediately seen in RLQ. At this time the appendix was visualized and the tip was freed and elevated toward the abdominal wall. The appendix was perforated and gangrenous. The entire peritoneum was inflamed. A window was created in the mesoappendix at the base of the appendix. A 45mm gold load stapler was then fired across the base of the appendix which appeared healthy. The mesoappendix was obliterated and freed from the retroperitoneum bluntly. The appendix was then placed in an Endocatch bag and removed through the LLQ port site. Staple line was inspected and was intact. Hemostasis was complete. A 19 Fr Jorge A drain was placed in the RLQ and sutured to the abdominal wall using 2-0 Nylon. The 12 mm port was then closed at the fascial level using a 0 Vicryl suture using the suture passer. All ports were removed under direct visualization and no bleeding was noted. The abdomen was desufflated and the skin was closed using 4-0 Monocryl in a subcuticular fashion. Sterile dressings were applied. Muir catheter was removed. The patient was then awakened from anesthesia having remained stable throughout the entire case and transported to PACU. All needle and sponge counts were correct x 2. I attest to the content of the Intraoperative Record and any orders documented therein. Any exceptions are noted below.
--- NOTE | 2020-05-17 23:10 | Anesthesiology Progress Note ---
Date of Service May 17, 2020 Anesthesia Post Procedure Vital Signs Vital Signs: Temp Pulse Pulse Resp BP BP Pulse Ox 05/17/20 23:07 103 H 22 96/63 L 94 05/17/20 23:00 107 H 24 102/62 94 05/17/20 22:50 112 H 22 108/59 L 95 05/17/20 22:40 38.4 C H 114 H 20 122/62 95 05/17/20 20:01 116 H 29 H 96 05/17/20 20:00 115 H 31 H 113/72 96 05/17/20 19:39 119 H 26 H 137/87 95 05/17/20 19:30 116 H 95 05/17/20 19:13 116 H 19 96 05/17/20 18:30 123 H 21 05/17/20 18:26 129 H 23 94 05/17/20 18:13 132 H 27 H 107/74 95 05/17/20 17:41 37.5 C 142 H 20 134/76 92 Transfer of Care Handoff Completed per policy Notes Mental Status: alert / awake / arousable Patient Amnestic to Procedure: Yes Nausea / Vomiting: adequately controlled Pain: adequately controlled Airway Patency, RR, SpO2: stable & adequate BP & HR: stable & adequate Hydration State: stable & adequate Anesthetic Complications: no major complications apparent
[2020-05-17] MEDS ORDERED: oxyCODONE HCL IR 5 MG TAB (IMMEDIATE RELEASE) PO PRN (23:33)
[2020-05-17] MEDS ORDERED: MoRPHine SULFATE 4 MG/ML 1 ML CARP\\VIAL IV PRN (23:33)
[2020-05-17] MEDS ORDERED: PIPERACILL/TAZOBAC CONSULT ACTIVE PRN (23:33)
[2020-05-17] MEDS: ACETAMINOPHEN 1,000 MG/100 ML VIAL IV SCH (23:56)
[2020-05-18] MEDS ORDERED: PIPERACILLIN/TAZOBACTAM 4.5 GM in DEXTROSE 5% 100 ML IV ONE
[2020-05-18] MEDS: PIPERACILLIN/TAZOBACTAM 4.5 GM in DEXTROSE 5% 100 ML IV SCH ×3 (05:35→21:19)
[2020-05-18 06:29] LABS: Basophils # (auto) 0.02 K/uL (0-0.2); Basophils % (auto) 0.2 %; Eosinophils # (auto) 0.01 K/uL (0-0.5); Eosinophils % (auto) 0.1 %; Hematocrit (blood only) 43.3 % (42-52); Hemoglobin 14.4 g/dL (14.0-18.0); Immature Granulocytes # (auto) 0.03 K/uL (0.00-0.02); Immature Granulocytes % (auto) 0.3 %; Lymphocytes % (auto) 6.9 %; Mean Corpuscular Hemoglobin 32.7 pg (25-34); Mean Corpuscular Volume 98.2 fL (80-100); Mean Platelet Volume 10.3 fL (7.4-10.4); Monocytes # (auto) 0.85 K/uL (0.11-0.59); Monocytes % (auto) 7.4 %; Neutrophils # (auto) 9.83 K/uL (1.4-6.5); Neutrophils % (auto) 85.1 %; Platelet Count 200 K/uL (130-400); RDW Coefficient of Variation 13.1 % (11.5-14.5); RDW Standard Deviation 47.4 fL (36.4-46.3); Red Blood Count 4.41 M/uL (4.7-6.1); White Blood Count 11.54 K/uL (4.8-10.8)
--- NOTE | 2020-05-18 06:29 | Surgery Progress Note ---
Date of Service May 18, 2020 Assessment & Plan (1) Acute appendicitis: POD #1 appendectomy for ruptured appendix: -continue abx--zosyn -continue analgesics and eanti-emetics -monitor drain output -awaiting am labs--CBC, PRP -encourage ambulation -will consider allowing clears this morning -pt. will require a few more days of IV abx. Admission and Anticipated Discharge Date Admission Date: May 17, 2020 Supervising Physician Co-Signing Physician Notes I personally saw and evaluated the patient with Andrey Qureshi PA-C and agree with the assessment and plan. 74 yo male POD#1 laparoscopic appendectomy for perforated gangrenous appendicitis -Advance diet -Continue Zosyn -Encourage ambulation/IS -Leave drain in place -Keep IVF due to increase in Cr Subjective Pt. denies fevers, shakes, chills. Abdomen is sore from incisions. No N/V. He did report difficulty urinating but this seems to have resolved. No BM or flatus since surgery. He does not realy feel hungry. Physical Exam Constitutional: well developed and well nourished; no acute distress Neck: trachea midline, no thyromegaly Respiratory: normal respiratory effort; no respiratory distress and no labored breathing Cardiovascular: Rate/Rhythm: regular rate and regular rhythm Gastrointestinal (Abdomen): tender near incision; slight distention noted with hypoactive BS Musculoskeletal: no calf pain Results & Data ([facility]) Vital Signs (Past 12 Hours) Vital Signs Temp Pulse Pulse Pulse Resp BP BP 05/18/20 02:31 36.7 C 92 H 18 99/67 L 05/18/20 01:24 37.0 C 91 H 18 114/70 05/18/20 00:33 37 C 98 H 18 94/64 L 05/18/20 00:03 36.9 C 104 H 18 104/64 05/17/20 23:25 37.3 C 101 H 18 119/73 05/17/20 23:16 102 H 22 112/63 05/17/20 23:10 103 H 22 96/63 L 05/17/20 23:00 107 H 24 102/62 05/17/20 22:50 112 H 22 108/59 L 05/17/20 22:40 38.4 C H 114 H 20 122/62 05/17/20 20:01 116 H 29 H 05/17/20 20:00 115 H 31 H 113/72 05/17/20 19:39 119 H 26 H 137/87 05/17/20 19:30 116 H 05/17/20 19:13 116 H 19 05/17/20 18:30 123 H 21 05/17/20 18:26 129 H 23 Pulse Ox 05/18/20 02:31 96 05/18/20 01:24 96 05/18/20 00:33 94 05/18/20 00:03 92 05/17/20 23:25 93 05/17/20 23:16 94 05/17/20 23:10 94 05/17/20 23:00 94 05/17/20 22:50 95 05/17/20 22:40 95 05/17/20 20:01 96 05/17/20 20:00 96 05/17/20 19:39 95 05/17/20 19:30 95 05/17/20 19:13 96 05/17/20 18:30 05/17/20 18:26 94 PG Care Time/CCT Total # of Minutes Spent Total Time Spent with Patient: Total time spent is greater than 50% in coordination of care (as documented) at patient's floor/unit and/or counseling patient: Coding Level of Care Code None Diagnoses Acute appendicitis K35.80 Acute appendicitis type: with localized peritonitis (1) Acute appendicitis Acute appendicitis type: with localized peritonitis
[2020-05-18 06:32] LABS: Mean Corpuscular Hgb Conc 33.3 g/dL (32-36)
[2020-05-18 06:48] LABS: BUN Creatinine Ratio 14.9 (10-20); Calcium 8.5 mg/dl (8.5-10.1); Creatinine Clr Calc Pharmacy 52.3 ml/min; Est GFR (Non-African American) 48.3; Potassium 4.3 mmol/L (3.5-5.1)
[2020-05-18] MEDS: ACETAMINOPHEN 1,000 MG/100 ML VIAL IV SCH ×3 (07:54→23:21)
[2020-05-18] MEDS: LACTATED RINGER'S 1,000 ML IV SCH ×3 (09:01→19:28)
[2020-05-18 11:46] LABS: Appearance Urine Clear (Clear); Bacteria Urine Automated Negative (Negative); Blood Urine 1+ (Negative); Color Urine Dark Yellow; Glucose Urine UA Negative (Negative); Ketones Urine Trace (Negative); Leukocyte Esterase Urine Negative (Negative); Nitrite Urine Negative (Negative); Protein Urine Trace (Negative); Specific Gravity Urine 1.042 (1.000-1.030); Urobilinogen Urine Negative (Negative)
[2020-05-18 11:47] LABS: Bilirubin Urine Negative (Negative); Ictotest Urine Negative (Negative)
[2020-05-18 12:04] LABS: Uric Acid Crystals Urine Present (None Prsent)
--- NOTE | 2020-05-18 22:58 | Electrocardiogram Report ---
Test Reason : Blood Pressure : / mmHG Vent. Rate : 137 BPM Atrial Rate : 137 BPM P-R Int : 138 ms QRS Dur : 078 ms QT Int : 272 ms P-R-T Axes : 062 056 059 degrees QTc Int : 410 ms Sinus tachycardia Otherwise normal ECG When compared with ECG of 06-JAN-2019 22:25, Premature ventricular complexes are no longer Present Premature supraventricular complexes are no longer Present Confirmed by Pavel Levin ([id number]) on 05/18/2020 10:58:16 PM Referred By: REFERRED SELF Confirmed By:Pavel Levin
[2020-05-18] MEDS: ONDANSETRON INJ 2 MG/ML 2 ML VIAL IV PRN (23:18)
--- NOTE | 2020-05-19 04:50 | Surgery Progress Note ---
Date of Service May 19, 2020 Assessment & Plan (1) Acute appendicitis: POD #2 appendectomy for ruptured appendix: -continue abx--zosyn -continue analgesics and anti-emetics -monitor drain output -clinically I suspect pt. has an ileus: -encourage ambulation -will check KUB -will check CBC, PRP -make NPO -if N/V ensue NGT may be required -add sub-q heparin for DVT prevention Admission and Anticipated Discharge Date Admission Date: May 17, 2020 Supervising Physician Co-Signing Physician Notes I personally saw and evaluated the patient with Andrey Qureshi PA-C and agree with the assessment and plan. 74 yo male POD#2 laparoscopic appendectomy for perforated gangrenous appendicitis, ileus -Back down to NPO, may need NGT if continues emesis -Continue Zosyn -Encourage ambulation/IS -Leave drain in place -Keep IVF due to increase in Cr Subjective Pt. notes his abdomen is distended and he feels nauseated. no fevers, shakes, chills, or SOB. Physical Exam Constitutional: well developed and well nourished; no acute distress Respiratory: normal respiratory effort; no respiratory distress and no labored breathing Cardiovascular: Rate/Rhythm: regular rate and regular rhythm Gastrointestinal (Abdomen): abdomen is firm and distended; BS are absent; TTP near incisions, GINNY drain has small amount of serosanguinous fluid in it Musculoskeletal: no calf pain Results & Data ([facility]) Vital Signs (Past 12 Hours) Vital Signs Temp Pulse Resp BP Pulse Ox 05/18/20 23:37 37.5 C 114 H 18 121/67 91 PG Care Time/CCT Total # of Minutes Spent Total Time Spent with Patient: Total time spent is greater than 50% in coordination of care (as documented) at patient's floor/unit and/or counseling patient: Coding Level of Care Code None Diagnoses Acute appendicitis K35.80 Acute appendicitis type: with localized peritonitis (1) Acute appendicitis Acute appendicitis type: with localized peritonitis
[2020-05-19 05:06] LABS: Basophils # (auto) 0.01 K/uL (0-0.2); Basophils % (auto) 0.1 %; Eosinophils # (auto) 0.07 K/uL (0-0.5); Eosinophils % (auto) 0.7 %; Hematocrit (blood only) 45.2 % (42-52); Hemoglobin 15.2 g/dL (14.0-18.0); Immature Granulocytes # (auto) 0.02 K/uL (0.00-0.02); Immature Granulocytes % (auto) 0.2 %; Lymphocytes # (auto) 1.07 K/uL (1.2-3.4); Lymphocytes % (auto) 10.2 %; Mean Corpuscular Hemoglobin 32.9 pg (25-34); Mean Corpuscular Volume 97.8 fL (80-100); Mean Platelet Volume 10.2 fL (7.4-10.4); Monocytes # (auto) 0.69 K/uL (0.11-0.59); Monocytes % (auto) 6.6 %; Neutrophils # (auto) 8.65 K/uL (1.4-6.5); Neutrophils % (auto) 82.2 %; Platelet Count 190 K/uL (130-400); RDW Coefficient of Variation 13.1 % (11.5-14.5); RDW Standard Deviation 46.5 fL (36.4-46.3); Red Blood Count 4.62 M/uL (4.7-6.1); White Blood Count 10.51 K/uL (4.8-10.8)
[2020-05-19 05:15] LABS: Mean Corpuscular Hgb Conc 33.6 g/dL (32-36)
[2020-05-19 05:27] LABS: Calcium 9.5 mg/dl (8.5-10.1); Creatinine Clr Calc Pharmacy 61.9 ml/min; Est GFR (African American) 68.6; Est GFR (Non-African American) 59.2; Potassium 3.9 mmol/L (3.5-5.1)
[2020-05-19] MEDS: PIPERACILLIN/TAZOBACTAM 4.5 GM in DEXTROSE 5% 100 ML IV SCH ×3 (05:38→21:52)
[2020-05-19] MEDS: LACTATED RINGER'S 1,000 ML IV SCH ×2 (05:38→16:19)
[2020-05-19] MEDS: ONDANSETRON INJ 2 MG/ML 2 ML VIAL IV PRN (06:01)
[2020-05-19] MEDS: ACETAMINOPHEN 1,000 MG/100 ML VIAL IV SCH ×3 (07:39→23:32)
--- NOTE | 2020-05-19 09:06 | XRay Report ---
KUB HISTORY: Postop. ileus COMPARISON: Abdomen and pelvis CT 05/17/2020. FINDINGS: Multiple dilated gas-filled loops of small bowel seen within the mid abdomen. These measure up to 5 cm in diameter. The stomach is also gas-filled mildly distended. The colon is normal in amrtin angela. There are surgical drain within the right lower quadrant. There is a right total arthroplasty. No renal calculi. No ureteral calculi. No pneumoperitoneum or pneumatosis. IMPRESSION: Multiple dilated gas-filled loops of small bowel within the midabdomen. Given the recent postoperativ e changes this favors an ileus. However, a partial small bowel obstruction could also have a similar appearance. Continued follow-up recommended. ACT 112: Negative or not required by law. Electronically signed by: Tobi Foss M.D. 05/19/2020 9:04 AM
[2020-05-19] MEDS: HEPARIN SOD 5,000 UNIT/0.5 ML VIAL SQ SCH ×2 (09:11→20:20)
[2020-05-20] MEDS: LACTATED RINGER'S 1,000 ML IV SCH ×2 (02:38→13:27)
[2020-05-20] MEDS: PIPERACILLIN/TAZOBACTAM 4.5 GM in DEXTROSE 5% 100 ML IV SCH ×3 (05:51→21:17)
[2020-05-20] MEDS: ACETAMINOPHEN 1,000 MG/100 ML VIAL IV SCH ×3 (07:42→23:43)
--- NOTE | 2020-05-20 07:45 | Anesthesiology Progress Note ---
Date of Service May 20, 2020 Anesthesia Post Procedure Vital Signs Vital Signs: Temp Pulse Resp BP BP Pulse Ox 05/20/20 07:15 37.1 C 104 H 18 128/80 97 05/20/20 04:43 37.2 C 85 16 154/88 H 92 05/19/20 23:13 37.2 C 93 H 18 158/82 H 93 05/19/20 15:30 37.3 C 93 H 20 155/88 H 90 Pain Intensity Abdomen: Pain Intensity: 1 Notes Mental Status: alert / awake / arousable and participated in evaluation Patient Amnestic to Procedure: Yes Nausea / Vomiting: adequately controlled Pain: adequately controlled Airway Patency, RR, SpO2: stable & adequate BP & HR: stable & adequate Hydration State: stable & adequate Anesthetic Complications: no major complications apparent
--- NOTE | 2020-05-20 08:42 | Surgery Progress Note ---
Date of Service May 20, 2020 Assessment & Plan (1) Acute appendicitis: POD #3 appendectomy for ruptured appendix: -continue abx--zosyn bowel function returning, can start clears Admission and Anticipated Discharge Date Admission Date: May 17, 2020 Supervising Physician Co-Signing Physician Notes I personally saw and evaluated the patient with Moody Jimenez PA-C and agree with the assessment and plan. 74 yo male POD#3 laparoscopic appendectomy for perforated gangrenous appendicitis, resolving ileus -Feeling much better, tolerating some clears and has return of bowel function -Continue Zosyn -Encourage ambulation/IS -Leave drain in place -Decrease IVF -If tolerates diet and remains afebrile, possible d/c tomorrow Subjective multiple BMs, nausea resolved Physical Exam Gastrointestinal (Abdomen): Inspection/Auscultation: + abdominal surgical incision (dry dressings) and + abdominal surgical drain present (decreasing, 15 cc overnight); abdomen not distended Percussion/Palpation: abdomen soft Results & Data ([facility]) Vital Signs (Past 12 Hours) Vital Signs Temp Pulse Resp BP BP Pulse Ox 05/20/20 07:15 37.1 C 104 H 18 128/80 97 05/20/20 04:43 37.2 C 85 16 154/88 H 92 05/19/20 23:13 37.2 C 93 H 18 158/82 H 93 PG Care Time/CCT Total # of Minutes Spent Total Time Spent with Patient: Total time spent is greater than 50% in coordination of care (as documented) at patient's floor/unit and/or counseling patient: Coding Level of Care Code None Diagnoses Acute appendicitis K35.80 Acute appendicitis type: with localized peritonitis (1) Acute appendicitis Acute appendicitis type: with localized peritonitis
[2020-05-20] MEDS: HEPARIN SOD 5,000 UNIT/0.5 ML VIAL SQ SCH ×2 (09:03→21:13)
[2020-05-21] MEDS: LACTATED RINGER'S 1,000 ML IV SCH (02:18)
[2020-05-21] MEDS: PIPERACILLIN/TAZOBACTAM 4.5 GM in DEXTROSE 5% 100 ML IV SCH (05:23)
--- NOTE | 2020-05-21 07:40 | Surgery Progress Note ---
Date of Service May 21, 2020 Assessment & Plan (1) Acute appendicitis: POD #4 appendectomy for ruptured appendix: on Zosyn labs pending HR improved f/u later today for possible d/c Admission and Anticipated Discharge Date Admission Date: May 17, 2020 Supervising Physician Co-Signing Physician Notes I personally saw and evaluated the patient with Moody Jimenez PA-C and agree with the assessment and plan. 74 yo male POD#4 laparoscopic appendectomy for perforated gangrenous appendicitis, resolving ileus -Feeling much better, tolerating diet with return of bowel function -Leukocytosis resolved -Continue Zosyn, switch to Augmentin at d/c -Encourage ambulation/IS -D/c drain prior to d/c -D/C home later today Subjective on full liquids, BM this morning Physical Exam Gastrointestinal (Abdomen): Inspection/Auscultation: + abdominal surgical drain present (10 c per shift past 24 hrs); abdomen not distended Percussion/Palpation: abdomen soft Results & Data ([facility]) Vital Signs (Past 12 Hours) Vital Signs Temp Pulse Resp BP BP Pulse Ox 05/21/20 07:29 37.2 C 79 18 142/75 H 92 05/21/20 03:32 36.6 C 65 16 153/83 H 93 05/20/20 23:03 37.0 C 77 16 144/82 H 95 PG Care Time/CCT Total # of Minutes Spent Total Time Spent with Patient: Total time spent is greater than 50% in coordination of care (as documented) at patient's floor/unit and/or counseling patient: Coding Level of Care Code None Diagnoses Acute appendicitis K35.80 Acute appendicitis type: with localized peritonitis (1) Acute appendicitis Acute appendicitis type: with localized peritonitis
[2020-05-21 07:48] LABS: Basophils # (auto) 0.03 K/uL (0-0.2); Basophils % (auto) 0.5 %; Eosinophils # (auto) 0.29 K/uL (0-0.5); Eosinophils % (auto) 4.5 %; Hemoglobin 13.2 g/dL (14.0-18.0); Immature Granulocytes # (auto) 0.03 K/uL (0.00-0.02); Immature Granulocytes % (auto) 0.5 %; Lymphocytes # (auto) 0.99 K/uL (1.2-3.4); Lymphocytes % (auto) 15.5 %; Mean Corpuscular Hemoglobin 32.1 pg (25-34); Mean Corpuscular Volume 97.3 fL (80-100); Mean Platelet Volume 9.8 fL (7.4-10.4); Monocytes # (auto) 0.88 K/uL (0.11-0.59); Monocytes % (auto) 13.8 %; Neutrophils # (auto) 4.16 K/uL (1.4-6.5); Neutrophils % (auto) 65.2 %; Platelet Count 195 K/uL (130-400); RDW Standard Deviation 46.7 fL (36.4-46.3); Red Blood Count 4.11 M/uL (4.7-6.1); White Blood Count 6.38 K/uL (4.8-10.8)
[2020-05-21] MEDS: HEPARIN SOD 5,000 UNIT/0.5 ML VIAL SQ SCH (09:24)
--- NOTE | 2020-05-21 11:35 | Discharge Summary ---
Date of Service May 21, 2020 Admission HPI Per Admitting Provider This is a 74 yo male who presents with 2 days of sharp lower abdominal pain without radiation, slightly improved with ASA. He denies any fevers or chills. No N/V. No melena or hematochezia. No constipation or diarrhea. No dysuria. Principal Diagnosis Ruptured appendicitis Discharge Exam Constitutional WD/WN, vitals as above Gastrointestinal (Abdomen) Inspection/Auscultation: + abdominal surgical incision (clean, dry); abdomen not distended Percussion/Palpation: abdomen soft Discharge Data Allergies Allergy/AdvReac Type Severity Reaction Status Date / Time No Known Allergies Allergy Verified 05/17/20 19:43 Consultations 05/17/20 19:31 ED Decision to Admit Stat Procedures Performed Operation Date: 05/17/20 20:30 Actual Procedures p Laparoscopic Appendectomy(Not Applicable) - Jorge A Napier DO Ordered Studies 05/17/20 18:21 CT abd pelvis wo con Stat Hospital Course (1) Acute appendicitis: 74 y/o male presented to the ER with abdominal pain. White count was 11,[address] was consistent with acute appendicitis. He was taken to the oper ating room for laparoscopic appendectomy and transferred to the surgical floor. IV antibiotics were continued for ruptured appendix. He had slow return of bowel function. By POD 3 he was having BMs and was able to resume a slowly advancing diet. His white count was normalizing and he remained afebrile. On POD 4 he was stable for discharge home on oral antibiotics. His GINNY drain was removed prior to discharge. Total Time Total Time Spent Total Time Spent (In Minutes): 10 Discharge Plan Discharge Items Patient Disposition: Home - Self-Care Reason For Visit: APPY Discharge Diagnosis: laparoscopic appendectomy Activity: Per Instructions section Lifting: No more than 10 pounds Bathing Comment: may shower; no soaking in tubs/pools Exercise/Sports: Wait until after follow-up appointment Driving/Machine Use: do not resume driving while taking narcotics for pain Non-emergency contact: Surgeon Call non-emergency contact if: you have any medication questions, your symptoms worsen, your pain is not controlled, your pain is worsening, your pain is unusual for you, you have a fever, your temperature is above 101.5, your wound has increased redness, your wound has increased drainage and your wound pain has increased Follow-up/Referrals: Jorge A Napier DO [Physician] - 05/30/20 9:00 am (Please call to schedule follow up in clinic within 2 weeks) Philip Chahal MD [Primary Care Provider] - Diet: Regular Addtl Attending Provider Instructions: You may purchase Tylenol over the counter if needed for additional pain control. - Tylenol 650mg orally every 6-8 hours, as needed for pain. Do NOT exceed more than 3 grams of acetaminophen in a 24 hour time period. You have small white bandages over your incisions called steri-strips. You may shower with these on. They will tend to fall off on their within 7-10 days. Please complete the full course of antibiotic prescribed to you. Pending Studies at Discharge: Yes Stand-Alone Forms: My [facility], Opioid Pain Management, Smoking Cessation Medications and DC Order Prescriptions: New oxycodone 5 mg tablet 5 mg PO .[id number] PRN (Reason: pain, for initial therapy, max 6 tabs per day) Qty: 12 RF: 0 amoxicillin-pot clavulanate [Augmentin] 875-125 mg tablet 1 tab PO BID Qty: 20 RF: 0 Continued aspirin 325 mg Tablet 325 mg PO ONCE RF: 0 Discharge Orders: Discharge Order (Routine); Ordered 05/21/20 Ordered By: Zaira Oh Admission Data Admit Date/Time: 05/17/20 22:34 Attending Provider: Jorge A Napier Admit Provider: Jorge A Napier Primary Care Provider: Philip Chahal Other Providers: Jorge A Napier Other Interventions: Discharge Summary Assessment (RN) Last Done: 05/21/20 10:48 Coding Level of Care Code D/C Day Management <30 mins Diagnoses Acute appendicitis K35.80 Acute appendicitis type: with localized peritonitis
== END 2020-05-21 11:15 | disposition home or self-care (01) | DRG 339 ==
LOC: ED 17:13 → ASU 20:00 → 3N 20:29